=== PATIENT | male | born 1940 | race Caucasian/White ===

== ENCOUNTER → 2016-08-11 | Outpatient (CLI) | payer BC ==
[~2016-08-11] MED LIST: ALLO100T57 PO; ASCO500T16 PO; ASPI-435 PO; CEFE2INJ2 PO; CHOL100027 PO; FAMO20TA9 PO; FLV400 PO; LINA1TAB PO; LPR25 PO; MONT1TAB3 PO; OXYC-609 PO; POLY150C PO; PRS5 PO; PRVC20 PO; RAMI2.5C PO; SENN-63 PO; WARF5TAB90 PO
--- NOTE | 2016-08-11 07:45 | DIAGNOSTIC IMAGING REPORT ---
ULTRASOUND OF THE ABDOMINAL AORTA CLINICAL HISTORY: Generalized abdominal pain. Aneurysm screening. COMPARISON STUDY: No priors. TECHNIQUE: Multiple jacobo scale, color Doppler, and spectral Doppler sonograms of the abdominal aorta and iliac arteries are performed. Images are reviewed in the transverse and longitudinal planes. FINDINGS: There is mild to moderate atherosclerotic calcification and irregularity noted throughout the abdominal aorta. The proximal abdominal aorta measures 2.4 x 2.7 cm (AP times transverse), the mid abdominal aorta measures 2.0 x 2.3 cm, and the distal abdominal aorta measures 2.1 x 2.4 cm. The right common iliac artery measures up to 1.4 cm and the left common iliac artery measures up to 1.2 cm. The abdominal aorta and iliac arteries are patent. IMPRESSION: There is no sonographic evidence of abdominal aortic aneurysm. Electronically signed by: Carlos Phelps M.D. 08/11/2016 7:44 AM Dictated Date/Time: 08/11/2016 7:43 AM
--- NOTE | 2016-08-11 09:00 | DIAGNOSTIC IMAGING REPORT ---
L-SPINE FLEX/EXT BENDING MIN 6 CLINICAL HISTORY: LEFT HIP PAIN pain COMPARISON STUDY: None FINDINGS: Moderate degenerative disc changes throughout. Mild reactive osteophytic change. No evidence for compression deformity. No evidence for subluxation with flexion or extension. IMPRESSION: Mild/moderate degenerative intervertebral this change. Otherwise negative study with no evidence for subluxation Electronically signed by: Twin Cuello M.D. 08/11/2016 8:59 AM Dictated Date/Time: 08/11/2016 8:57 AM
--- NOTE | 2016-08-11 09:09 | DIAGNOSTIC IMAGING REPORT ---
SINGLE VIEW PELVIS; 2 VIEWS RIGHT HIP; 2 VIEWS LEFT HIP CLINICAL HISTORY: Chronic low back pain. Left hip pain. FINDINGS: An AP view of the pelvis with AP and frog-leg views of the right hip as well as AP and frog-leg views of the left hip are obtained. Correlation is made with pelvic CT dated 10/28/2007. The skeletal structures are osteopenic. No fracture is seen. There is mild to moderate arthritic change present in both hips, right greater than left. Bony overgrowth is seen along the acetabular roofs, and there is spurring from the right femoral head. Large enthesophytes arise in the anterior superior iliac spine bilaterally. Mild sclerotic change is seen in the sacroiliac joints and pubic symphysis. Mild lumbosacral spondylosis is partially imaged. Phlebolith are noted in the pelvis. Surgical clips are noted in the right groin. Advanced atherosclerotic calcification is present in the femoral arteries. A nonobstructed bowel gas pattern is noted. IMPRESSION: 1. No acute bony abnormality is seen in the hips or pelvis. 2. Osteopenia and arthritic change as above, right hip greater than left. Electronically signed by: Carlos Phelps M.D. 08/11/2016 9:07 AM Dictated Date/Time: 08/11/2016 8:57 AM
== END | disposition home or self-care (01) ==
LOC: C.ULTRBC 07:15
PROVIDERS: ATTEND Family Medicine
DX: M54.5 Low back pain (principal); R10.9 Unspecified abdominal pain; M85.88 Other specified disorders of bone density and structure, other site; Z82.49 Family history of ischemic heart disease and other diseases of the circulatory system

== ENCOUNTER → 2016-09-14 | Outpatient (CLI) | payer BC ==
[2016-09-14 16:29] LABS: BASO % 0.3 %; BASO ABS # 0.02 K/uL (0-0.2); COMPLETE YES; EOS % 2.1 %; HEMATOCRIT 40.3 % (42-52); IG% 0.5 %; LYMPH ABS # 1.82 K/uL (1.2-3.4); MEAN CELL VOLUME 95.7 fL (80-100); MEAN CORPUSCULAR HEMOGLOBIN 33.5 pg (25-34); MEAN PLATELET VOLUME 11.1 fL (7.4-10.4); NEUT % 65.1 %; PLATELET COUNT 181 K/uL (130-400); RED BLOOD COUNT 4.21 M/uL (4.7-6.1); WHITE BLOOD COUNT 7.59 K/uL (4.8-10.8)
[2016-09-14 17:02] LABS: ALT/SGPT 26 U/L (12-78); C-REACTIVE PROTEIN < 0.29 mg/dl (0-0.29); CREATININE 0.82 mg/dl (0.60-1.40)
[2016-09-14 17:05] LABS: ALKALINE PHOSPHATASE 59 U/L (45-117); AST/SGOT 17 U/L (15-37)
== END | disposition home or self-care (01) ==
LOC: C.LAB 14:20
PROVIDERS: ATTEND Nurse Practitioner Family
DX: Z77.9 Other contact with and (suspected) exposures hazardous to health (principal)

== ENCOUNTER → 2016-11-10 | Outpatient (CLI) | payer OTHER ==
[2016-11-10 11:42] LABS: HEMATOCRIT 43.6 % (42-52); MEAN CELL VOLUME 96.5 fL (80-100); MEAN CORPUSCULAR HEMOGLOBIN 33.4 pg (25-34); MEAN CORPUSCULAR HGB CONC 34.6 g/dl (32-36); MEAN PLATELET VOLUME 11.2 fL (7.4-10.4); PLATELET COUNT 175 K/uL (130-400); RED BLOOD COUNT 4.52 M/uL (4.7-6.1); WHITE BLOOD COUNT 7.74 K/uL (4.8-10.8)
[2016-11-10 12:11] LABS: ALB/GLOB RATIO 1.3 (0.9-2); ALKALINE PHOSPHATASE 58 U/L (45-117); ALT/SGPT 23 U/L (12-78); AST/SGOT 20 U/L (15-37); BLOOD UREA NITROGEN 22 mg/dl (7-18); BUN/CREATININE RATIO 21.5 (10-20); C-REACTIVE PROTEIN < 0.29 mg/dl (0-0.29); CALCIUM 9.5 mg/dl (8.5-10.1); CARBON DIOXIDE 25 mmol/L (21-32); CHLORIDE 110 mmol/L (98-107); GLUCOSE 136 mg/dl (70-99); POTASSIUM 4.4 mmol/L (3.5-5.1); SODIUM 142 mmol/L (136-145)
== END | disposition home or self-care (01) ==
LOC: C.LAB 11:00
PROVIDERS: ATTEND Internal Medicine Infectious Disease
DX: Z77.9 Other contact with and (suspected) exposures hazardous to health (principal)

== ENCOUNTER → 2016-11-25 | Outpatient (CLI) | payer BC ==
[2016-11-25 09:39] LABS: BASO % 0.4 %; BASO ABS # 0.03 K/uL (0-0.2); COMPLETE YES; EOS % 3.5 %; HEMATOCRIT 43.4 % (42-52); IG% 0.4 %; LYMPH % 25.5 %; LYMPH ABS # 1.92 K/uL (1.2-3.4); MEAN CELL VOLUME 95.8 fL (80-100); MEAN CORPUSCULAR HEMOGLOBIN 31.8 pg (25-34); MEAN CORPUSCULAR HGB CONC 33.2 g/dl (32-36); MEAN PLATELET VOLUME 11.2 fL (7.4-10.4); MONO % 7.4 %; NEUT % 62.8 %; PLATELET COUNT 169 K/uL (130-400); RED BLOOD COUNT 4.53 M/uL (4.7-6.1); WHITE BLOOD COUNT 7.52 K/uL (4.8-10.8)
[2016-11-25 09:55] LABS: ALT/SGPT 25 U/L (12-78); BLOOD UREA NITROGEN 18 mg/dl (7-18); BUN/CREATININE RATIO 18.6 (10-20); CARBON DIOXIDE 25 mmol/L (21-32); CHLORIDE 108 mmol/L (98-107); CHOLESTEROL 154 mg/dl (0-200); CREATININE 0.99 mg/dl (0.60-1.40); GLUCOSE 143 mg/dl (70-99); POTASSIUM 4.2 mmol/L (3.5-5.1); SODIUM 143 mmol/L (136-145); TRIGLYCERIDES 181 mg/dl (0-150); URIC ACID 3.9 mg/dl (2.6-7.2); VERY LOW DENSITY LIPOPROT CALC 36 mg/dl
[2016-11-25 09:58] LABS: CALCIUM 8.9 mg/dl (8.5-10.1)
[2016-11-25 10:04] LABS: ALB/GLOB RATIO 1.4 (0.9-2); ALKALINE PHOSPHATASE 58 U/L (45-117); AST/SGOT 16 U/L (15-37); CHOLESTEROL/HDL RATIO 4.1; HDL CHOLESTEROL 38 mg/dl; LDL CHOLESTEROL CALCULATED 80 mg/dl; PHOSPHORUS 2.8 mg/dl (2.5-4.9)
[2016-11-25 10:33] LABS: ESTIMATED AVERAGE GLUCOSE 143 mg/dl; HA1C FLAG Normal (Normal)
[2016-11-26 10:18] LABS: C-REACTIVE PROT HIGHSEN 1.5 MG/L
--- NOTE | 2016-11-30 09:48 | CODING QUERY MEDICAL NECESSITY ---
SUPPORTING DIAGNOSIS NEEDED Dr. Garcia, A supporting diagnosis is required for the test/procedure performed on this patient in order for us to be reimbursed by the patient's insurance. Please provide a supporting diagnosis for the following test/procedure listed below next to the test name along with your signature. *If there is no additional diagnosis for this patient that would support the following test/procedure please document that below next to the test/procedure. Test(s)/Procedure(s) that require a supporting diagnosis: * ([id number]) VITAMIN D ASSAY DIAGNOSIS: * ([id number]) B12 VITAMIN LEVEL DIAGNOSIS: * ([id number]) C-REATIVE PROTEIN DIAGNOSIS: DATE OF SERVICE: 11/25/16 Provider Signature: Date: Thank you Schuyler [facility] Information Management Once completed, please kindly fax back to [phone] For questions please call [phone]
== END | disposition home or self-care (01) ==
LOC: C.LAB 07:53
PROVIDERS: ATTEND Family Medicine
DX: R73.09 Other abnormal glucose (principal); R53.83 Other fatigue

== ENCOUNTER → 2017-01-25 | Outpatient (CLI) | payer BC | END | disposition home or self-care (01) | LOC: C.LAB 17:46 | PROVIDERS: ATTEND Family Medicine | DX: J02.9 Acute pharyngitis, unspecified (principal) ==

== ENCOUNTER → 2017-04-12 | Outpatient (CLI) | payer OTHER, BC ==
[2017-04-12 16:30] LABS: BASO % 0.4 %; BASO ABS # 0.03 K/uL (0-0.2); COMPLETE YES; EOS % 2.9 %; HEMATOCRIT 41.3 % (42-52); IG% 0.1 %; LYMPH % 22.8 %; LYMPH ABS # 1.83 K/uL (1.2-3.4); MEAN CELL VOLUME 95.2 fL (80-100); MEAN CORPUSCULAR HEMOGLOBIN 33.2 pg (25-34); MEAN CORPUSCULAR HGB CONC 34.9 g/dl (32-36); MEAN PLATELET VOLUME 11.2 fL (7.4-10.4); MONO % 6.2 %; NEUT % 67.6 %; PLATELET COUNT 174 K/uL (130-400); RED BLOOD COUNT 4.34 M/uL (4.7-6.1); WHITE BLOOD COUNT 8.04 K/uL (4.8-10.8)
[2017-04-12 16:58] LABS: ALT/SGPT 24 U/L (12-78); BLOOD UREA NITROGEN 21 mg/dl (7-18); BUN/CREATININE RATIO 21.2 (10-20); C-REACTIVE PROTEIN < 0.29 mg/dl (0-0.29); CALCIUM 9.6 mg/dl (8.5-10.1); CARBON DIOXIDE 25 mmol/L (21-32); CHLORIDE 107 mmol/L (98-107); CREATININE 0.98 mg/dl (0.60-1.40); GLUCOSE 172 mg/dl (70-99); POTASSIUM 3.9 mmol/L (3.5-5.1); SODIUM 140 mmol/L (136-145)
[2017-04-12 17:00] LABS: ALB/GLOB RATIO 1.4 (0.9-2); ALKALINE PHOSPHATASE 61 U/L (45-117); AST/SGOT 18 U/L (15-37)
== END | disposition home or self-care (01) ==
LOC: C.LAB 14:33
PROVIDERS: ATTEND Internal Medicine Infectious Disease
DX: Z77.9 Other contact with and (suspected) exposures hazardous to health (principal); N40.1 Benign prostatic hyperplasia with lower urinary tract symptoms; R97.20 Elevated prostate specific antigen [PSA]

== ENCOUNTER → 2017-06-23 | Outpatient (CLI) | payer BC ==
[2017-06-23 09:30] LABS: BASO % 0.5 %; BASO ABS # 0.03 K/uL (0-0.2); EOS % 3.3 %; EOS ABS # 0.21 K/uL (0-0.5); HEMATOCRIT 41.8 % (42-52); HEMOGLOBIN 14.7 g/dL (14.0-18.0); IG# 0.03 K/uL (0.00-0.02); LYMPH % 28.4 %; LYMPH ABS # 1.83 K/uL (1.2-3.4); MEAN CELL VOLUME 95.7 fL (80-100); MEAN CORPUSCULAR HEMOGLOBIN 33.6 pg (25-34); MEAN CORPUSCULAR HGB CONC 35.2 g/dl (32-36); MEAN PLATELET VOLUME 10.9 fL (7.4-10.4); MONO % 9.8 %; MONO ABS # 0.63 K/uL (0.11-0.59); NEUT % 57.5 %; NEUT ABS # 3.71 K/uL (1.4-6.5); PLATELET COUNT 166 K/uL (130-400); RED CELL DISTRIBUTION WIDTH CV 13.7 % (11.5-14.5); RED CELL DISTRIBUTION WIDTH SD 47.9 fL (36.4-46.3); WHITE BLOOD COUNT 6.44 K/uL (4.8-10.8)
[2017-06-23 09:55] LABS: HEMOGLOBIN A1C 6.6 % (4.5-5.6)
[2017-06-23 09:58] LABS: ALBUMIN 4.2 gm/dl (3.4-5.0); ALT/SGPT 26 U/L (12-78); AST/SGOT 16 U/L (15-37); BLOOD UREA NITROGEN 18 mg/dl (7-18); CARBON DIOXIDE 28 mmol/L (21-32); CHOLESTEROL 178 mg/dl (0-200); CREATININE 0.95 mg/dl (0.60-1.40); GLUCOSE 139 mg/dl (70-99); POTASSIUM 4.3 mmol/L (3.5-5.1); SODIUM 139 mmol/L (136-145); URIC ACID 4.6 mg/dl (2.6-7.2)
[2017-06-23 10:08] LABS: ALKALINE PHOSPHATASE 57 U/L (45-117); LDL CHOLESTEROL CALCULATED 77 mg/dl; TRANSFERRIN 288 mg/dl (200-360)
== END | disposition home or self-care (01) ==
LOC: C.LAB 08:48
PROVIDERS: ATTEND Family Medicine
DX: R73.09 Other abnormal glucose (principal); E55.9 Vitamin D deficiency, unspecified; D51.9 Vitamin B12 deficiency anemia, unspecified; E78.9 Disorder of lipoprotein metabolism, unspecified; R53.83 Other fatigue; N40.0 Benign prostatic hyperplasia without lower urinary tract symptoms

== ENCOUNTER → 2017-08-13 | Outpatient (CLI) | payer BC ==
[2017-08-13 13:13] LABS: BASO % 0.1 %; BASO ABS # 0.01 K/uL (0-0.2); EOS ABS # 0.14 K/uL (0-0.5); HEMATOCRIT 42.6 % (42-52); HEMOGLOBIN 14.4 g/dL (14.0-18.0); IG# 0.03 K/uL (0.00-0.02); LYMPH % 20.3 %; LYMPH ABS # 1.41 K/uL (1.2-3.4); MEAN CELL VOLUME 95.1 fL (80-100); MEAN CORPUSCULAR HEMOGLOBIN 32.1 pg (25-34); MEAN CORPUSCULAR HGB CONC 33.8 g/dl (32-36); MEAN PLATELET VOLUME 10.8 fL (7.4-10.4); MONO % 8.9 %; MONO ABS # 0.62 K/uL (0.11-0.59); NEUT % 68.3 %; NEUT ABS # 4.74 K/uL (1.4-6.5); PLATELET COUNT 181 K/uL (130-400); RED CELL DISTRIBUTION WIDTH CV 14.7 % (11.5-14.5); RED CELL DISTRIBUTION WIDTH SD 50.9 fL (36.4-46.3); WHITE BLOOD COUNT 6.95 K/uL (4.8-10.8)
[2017-08-13 13:51] LABS: ALBUMIN 4.2 gm/dl (3.4-5.0); ALT/SGPT 24 U/L (12-78); AST/SGOT 17 U/L (15-37); BLOOD UREA NITROGEN 20 mg/dl (7-18); CALCIUM 9.1 mg/dl (8.5-10.1); CARBON DIOXIDE 26 mmol/L (21-32); CREATININE 1.05 mg/dl (0.60-1.40); GLUCOSE 131 mg/dl (70-99); SODIUM 140 mmol/L (136-145)
[2017-08-13 13:53] LABS: ALKALINE PHOSPHATASE 61 U/L (45-117); TOTAL PROTEIN 7.2 gm/dl (6.4-8.2)
== END | disposition home or self-care (01) ==
LOC: C.LAB 11:11
PROVIDERS: ATTEND Internal Medicine Infectious Disease
DX: Z77.9 Other contact with and (suspected) exposures hazardous to health (principal)

== ENCOUNTER → 2018-01-17 | Outpatient (CLI) | payer BC | END | disposition home or self-care (01) | LOC: C.LAB 11:11 | PROVIDERS: ATTEND Urology | DX: R97.20 Elevated prostate specific antigen [PSA] (principal) ==

== ENCOUNTER 2020-12-06 22:38 | Inpatient (IN) ==
--- NOTE | 2020-12-07 00:12 | Emergency Department Note ---
History of Present Illness General Chief complaint: Weakness Time Seen by Provider: 12/06/20 23:36 Source: patient and family Mode of arrival: EMS Limitations: no limitations History of Present Illness Provider complaint: Weak, dizzy, frequent falls Onset (ago): week(s) 3 Is a 80-year-old male presents emergency department via EMS with at bedside due to concern for increasing dizziness, weakness, and frequent falls. On October 24 patient underwent a valve surgery done at [facility] and according to the had an episode of cardiac arrest intraoperatively. Patient states he spent 11 days in the ICU prior to being discharged. She states prior to discharge she did have a PT evaluation and with his walker they felt him steady and able to be discharged home. She states he had been started on Keppra as he had some seizure-like activity due to the cardiac arrest. He d id come home on that and they followed up with neurology, Dr. Lovelace. They began weaning back the Keppra as he was doing well and they felt his seizures were related to brief hypoxia during the cardiac arrest. Patient stopped the Keppra 2 weeks ago. They have followed up locally with cardiology, Dr. Elder, and they feel he is doing well status post valve replacement surgery. She states they discussed the dizziness and weakness with him and he told him to stop taking the ramipril he was using. She states he has now been off that for 1 week. She states over these last 2 to 3 weeks he has sustained a total of 4 falls. She states he typically falls to the right, and luckily he has not had any head injuries or significant injury. They did follow-up with his PCP Dr. Garcia as a result of this. states he had a subsequent recurrent episode again last night and was weaker and unsteady looking today even with the use of his walker and she is concerned for worsening symptoms and possible risk of recurrent fall. She states he is not had any fevers or chills. Patient did initially have a urinary catheter which was subsequently removed by urology and she states he is urinating well. She states he has not had any alcohol since the surgery. Patient describes it as feeling as though when he is standing his legs become very weak and wobbly and start to give out from underneath him. He denies chest pain/pressure, shortness of breath, abdominal pain, difficulty with bowel or bladder function, dizziness, headaches, vision changes, or tinnitus. Denies any accompanying paresthesias, neck or back pain. They did yesterday recontact neurology and there was discussion of possible neuroimaging as an outpatient next week. Pt seen during a time of high acuity and national emergency pandemic while wearing PPE. Home Medications Medication Instructions Recorded Confirmed Type allopurinol 300 mg tablet 300 mg PO QAM tab 02/09/19 12/06/20 History ascorbic acid (vitamin C) 500 mg 500 mg PO 3XWK tab 02/09/19 12/06/20 History tablet fenofibrate nanocrystallized 145 145 mg PO QAM tab 02/09/19 12/06/20 History mg tablet pravastatin 20 mg tablet 20 mg PO PM tab 02/09/19 12/06/20 History psyllium husk 3.4 gram/5.4 gram 0.5 tbsp PO QAM gm 02/09/19 12/06/20 History oral powder Centrum Silver Men 1 tab PO 4XWK 01/10/20 12/06/20 History coenzyme Q10 [Co Q-10] 200 mg PO QAM 01/10/20 12/06/20 History metformin 850 mg PO QAM 01/10/20 12/06/20 History metoprolol succinate 75 mg PO QPM 08/09/20 12/06/20 History cholecalciferol (vitamin D3) 50 25 mcg PO 3XWK tab 11/14/20 12/06/20 History mcg (2,000 unit) tablet vitamin B complex 1 tab PO 3XWK tab 11/21/20 12/06/20 History aspirin 81 mg PO QPM 12/06/20 12/06/20 History clopidogrel [Plavix] 75 mg PO QAM 12/06/20 12/06/20 History cyanocobalamin (vitamin B-12) 1,000 mcg SUBLINGUAL 4XWK 12/06/20 12/06/20 History [Vitamin B-12] finasteride 5 mg PO QPM 12/06/20 12/06/20 History levetiracetam 500 mg PO BID 12/06/20 12/06/20 History ramipril 10 mg PO QAM 12/06/20 12/06/20 History tamsulosin 0.4 mg PO QAM 12/06/20 12/06/20 History thiamine HCl (vitamin B1) 100 mg PO 4XWK 12/06/20 12/06/20 History Allergies Allergy/AdvReac Type Severity Reaction Status Date / Time mold Allergy Intermediate SNEEZING, Verified 12/06/20 23:23 CONGESTION Past Med/Surg History Medical History Aortic valve disorder SEES DR. ELDER. S/P AV replacement X 2. 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 S/p antibiotic treatment and 2nd AV replacement. Current prosthesis does have a moderate degree of stenosis, but patient is asymptomatic and cardiology monitoring with routine echos until patient develops symptoms. Environmental allergies Esophageal reflux Controlled/resolved with diet changes. Essential hypertension Extrinsic asthma NEVER HAS USED INHALER Hiatal hernia Hx of gout Hypercholesterolemia Osteoarthritis Type 2 diabetes mellitus NIDDM Surgical History Heart valve replaced by other means X2> LAST ONE 5 YRS AGO> [facility] > [facility] > FOLLOWS DR. ELDER History of appendectomy History of cardiac cath 16 YRS AGO [facility] History of colonoscopy History of hemorrhoidectomy History of tonsillectomy History of tooth extraction History of total knee replacement BILAT History of urologic surgery HX CYSOLITHOPAXY FOR BLADDER STONE Hx of inguinal hernia repair S/P PICC central line placement HX > HAD FOR ENDOCARDITIS Family History Mother Diabetes Uncle Colon cancer Sister Family history of diabetes mellitus Other No family history of adverse response to anesthesia Social History Smoking Status: Former smoker Second Hand Exposure: Yes ( A CHILD); Hx Alcohol Use: Yes Alcohol type: wine and hard liquor Preferred Language: Chilean Communication Ability: Effective Visual Impairment: No Limitations Elementary Educator Required: No Beliefs That Will Affect Care: None Current Living Situation: Spouse Feels Safe at Home: Yes Assistive Devices: Glasses Review of Systems See HPI for pertinent positives & negatives. and A total of 10 systems reviewed and were otherwise negative Physical Exam Vital Signs Vital Signs - 24 hr 12/06/20 22:38 12/06/20 22:43 12/06/20 23:05 Temperature 36.9 C Temperature Source Oral Pulse Rate 70 69 69 Pulse Rate from SpO2 Sensor 68 Respiratory Rate 14 22 19 Blood Pressure 143/79 H 143/79 H Blood Pressure Mean 100 100 Pulse Oximetry 99 98 Oxygen Delivery Method Room Air Sepsis Recent Fever Within 48 Hours No Sepsis New/Unexplained Change in Mental Status No Sepsis Action Taken by Nursing No Action Required 12/06/20 23:30 12/06/20 23:58 Temperature Temperature Source Pulse Rate 66 Pulse Rate from SpO2 Sensor 66 Respiratory Rate 22 Blood Pressure Blood Pressure Mean Pulse Oximetry 96 Oxygen Delivery Method Room Air Sepsis Recent Fever Within 48 Hours Sepsis New/Unexplained Change in Mental Status Sepsis Action Taken by Nursing GENERAL: alert, well appearing, well nourished, no distress, non-toxic EYE EXAM: normal conjunctiva, PERRL and EOM's grossly intact OROPHARYNX: no exudate, no erythema, lips, buccal mucosa, and tongue normal and mucous membranes are moist NECK: supple, no nuchal rigidity, no adenopathy, non-tender LUNGS: Clear to auscultation. Normal chest wall mechanics, no w/r/r HEART: no murmurs, S1 normal and S2 normal, well healed midline sternotomy scar ABDOMEN: abdomen soft, non-tender, normo-active bowel sounds, no masses, no rebound or guarding. BACK: Back is symmetrical on inspection and there is no deformity, no midline tenderness, no CVA tenderness. SKIN: no rashes and no bruising UPPER EXTREMITIES: upper extremities are grossly normal. FROM, nml pulses b/l. LOWER EXTREMITIES: No pitting edema. FROM, nml pulses b/l. Str 5/5 hip flex, plantar/dorsiflexion, well healed vertical incisions over both knees consistent with surgery NEURO EXAM: Normal sensorium, cranial nerves II-XII grossly intact, normal speech, no gross weakness of arms, no gross weakness of legs. Gross sensation intact. Course Administered Medications Allopurinol (Allopurinol 300 Mg Tab) 300 mg PO QAM [facility] Stop: 01/06/21 08:59 Last Admin: 12/07/20 09:14 Dose: 300 mg Documented by: [id number] Aspirin (Aspirin 81 Mg Ectab) 81 mg PO QPM [facility] Stop: 01/06/21 20:59 Last Admin: 12/07/20 21:07 Dose: 81 mg Documented by: [id number] Clopidogrel Bisulfate (Clopidogrel Bisulfate 75 Mg Tab) 75 mg PO QAM [facility] Stop: 01/06/21 08:59 Last Admin: 12/07/20 09:14 Dose: 75 mg Documented by: [id number] Cyanocobalamin (Cyanocobalamin 500 Mcg Tablet (Vitamin B-12)) 1,000 mcg PO SuTuThSa@0900 [facility] Stop: 01/06/21 08:59 Last Admin: 12/07/20 09:14 Dose: 1,000 mcg Documented by: [id number] Fenofibrate (Fenofibrate Nanocrystallized 145 Mg Tablet) 145 mg PO QAM [facility] Stop: 01/06/21 08:59 Last Admin: 12/07/20 09:14 Dose: 145 mg Documented by: [id number] Finasteride (Finasteride 5 Mg Tab) 5 mg PO QPM [facility] Stop: 01/06/21 20:59 Last Admin: 12/07/20 21:07 Dose: 5 mg Documented by: [id number] Ceftriaxone Sodium 2,000 mg/ (Dextrose) 70 mls @ 100 mls/hr IV Q24H [facility]; Protocol Stop: 12/17/20 18:44 Last Infusion: 12/07/20 20:54 Dose: 0 mls/hr Documented by: [id number] Admin: 12/07/20 19:45 Dose: 100 mls/hr Documented by: [id number] Insulin Aspart (Insulin Aspart 100 Units/Ml 3 Ml Pen) 0 units SC ACHS [facility] Stop: 01/06/21 07:29 Last Admin: 12/07/20 21:29 Dose: Not Given Documented by: [id number] Cosigned by: [id number] Admin: 12/07/20 17:27 Dose: 2 units Documented by: [id number] Cosigned by: [id number] Admin: 12/07/20 12:37 Dose: 2 units Documented by: [id number] Cosigned by: [id number] Admin: 12/07/20 09:06 Dose: 2 units Documented by: [id number] Cosigned by: [id number] Levetiracetam (Levetiracetam 500 Mg Tab) 500 mg PO BID [facility] Stop: 01/06/21 09:44 Last Admin: 12/07/20 21:07 Dose: 500 mg Documented by: [id number] Admin: 12/07/20 12:36 Dose: 500 mg Documented by: [id number] Metoprolol Succinate (Metoprolol Succ 25mg Ext Rel Tab) 75 mg PO QPM [facility] Stop: 01/06/21 20:59 Last Admin: 12/07/20 21:06 Dose: 75 mg Documented by: [id number] Multivitamins/Minerals (Cerovite Adv Formula Tab) 1 tab PO SuTuThSa@0900 [facility] Stop: 01/06/21 08:59 Last Admin: 12/07/20 09:15 Dose: 1 tab Documented by: [id number] Pravastatin Sodium (Pravastatin Sod 20 Mg Tab) 20 mg PO PM [facility] Stop: 01/06/21 20:59 Last Admin: 12/07/20 21:10 Dose: 20 mg Documented by: [id number] Psyllium Hydrophilic Mucilloid (Psyllium 58.6% Powder Packet) 1 pkt PO QAM [facility] Stop: 01/06/21 08:59 Last Admin: 12/07/20 09:14 Dose: 1 pkt Documented by: [id number] Tamsulosin HCl (Tamsulosin Hcl 0.4 Mg Cap) 0.4 mg PO HS [facility] Stop: 01/06/21 20:59 Last Admin: 12/07/20 21:07 Dose: 0.4 mg Documented by: [id number] Thiamine HCl (Thiamine Hcl 100 Mg Tab) 100 mg PO SuTuThSa@0900 [facility] Stop: 01/06/21 08:59 Last Admin: 12/07/20 09:15 Dose: 100 mg Documented by: [id number] Discontinued Medications Sodium Chloride (Nss 1000ml) 1,000 mls @ 125 mls/hr IV .Q8H [facility] Stop: 01/06/21 00:14 Last Admin: 12/07/20 16:49 Dose: Not Given Documented by: [id number] Infusion: 12/07/20 16:49 Dose: 0 mls/hr Documented by: [id number] Admin: 12/07/20 09:22 Dose: 125 mls/hr Documented by: [id number] Infusion: 12/07/20 09:05 Dose: 0 mls/hr Documented by: [id number] Admin: 12/07/20 00:38 Dose: 125 mls/hr Documented by: [id number] Medical Decision Making Differential Diagnosis Differential Diagnosis includes but is not limited to dehydration, stroke, anemia, hypoglycemia, hyponatremia, hypernatremia, urinary tract infection, pneumonia, bronchitis, sepsis, gastroenteritis, additional abdominal pathology, metabolic abnormalities and infections. Medical Records Attestation: I reviewed the patient's medical records. Home Medications Current Medication List: was personally reviewed by me Laboratory Data Attestation: I reviewed the patient's lab results. Result diagrams: 12/06/20 23:00 12/06/20 23:00 Lab Results 12/06/20 12/06/20 12/07/20 Range/Units 23:00 23:00 01:30 WBC 7.91 (4.8-10.8) K/uL RBC 3.47 L (4.7-6.1) M/uL Hgb 10.7 L (14.0-18.0) g/dL Hct 32.9 L (42-52) % MCV 94.8 (80-100) fL MCH 30.8 (25-34) pg MCHC 32.5 (32-36) g/dL RDW Std Deviation 51.5 H (36.4-46.3) fL RDW Coeff of Miranda 15.0 H (11.5-14.5) % Plt Count 307 (130-400) K/uL MPV 10.2 (7.4-10.4) fL Immature Gran % (Auto) 0.3 % Neut % (Auto) 77.5 % Lymph % (Auto) 13.7 % [place] % (Auto) 6.4 % Eos % (Auto) 1.8 % Baso % (Auto) 0.3 % Neut # (Auto) 6.14 (1.4-6.5) K/uL Lymph # (Auto) 1.08 L (1.2-3.4) K/uL [place] # (Auto) 0.51 (0.11-0.59) K/uL Eos # (Auto) 0.14 (0-0.5) K/uL Baso # (Auto) 0.02 (0-0.2) K/uL Immature Gran # (Auto) 0.02 (0.00-0.02) K/uL Sodium 140 (136-145) mmol/L Potassium 3.8 (3.5-5.1) mmol/L Chloride 109 H (98-107) mmol/L Carbon Dioxide 24 (21-32) mmol/L Anion Gap 6.0 (3-11) BUN 26 H (7-18) mg/dl Creatinine 0.87 (0.6-1.4) mg/dl Est Cr Clr Drug Dosing 75.6 ml/min Est GFR ( Amer) 95.1 ml/min Est GFR (Non-Af Amer) 82.1 ml/min BUN/Creatinine Ratio 29.7 H (10-20) Glucose 167 H (70-99) mg/dl Calcium 9.2 (8.5-10.1) mg/dl Magnesium 1.9 (1.8-2.4) mg/dl Total Bilirubin 0.4 (0.2-1) mg/dl AST 12 L (15-37) U/L ALT 12 (12-78) U/L Alkaline Phosphatase 66 (45-117) U/L Troponin I < 0.015 (0-0.045) ng/ml Total Protein 7.2 (6.4-8.2) gm/dl Albumin 3.6 (3.4-5.0) gm/dl Globulin 3.6 (2.5-4.0) gm/dl Albumin/Globulin Ratio 1.0 (0.9-2) TSH 1.220 (0.300-4.500) uIu/ml COVID-19 Eval Order Covid19 at [facility] SARS-CoV-2 (PCR) (Negative) 12/07/20 Range/Units 01:30 WBC (4.8-10.8) K/uL RBC (4.7-6.1) M/uL Hgb (14.0-18.0) g/dL Hct (42-52) % MCV (80-100) fL MCH (25-34) pg MCHC (32-36) g/dL RDW Std Deviation (36.4-46.3) fL RDW Coeff of Miranda (11.5-14.5) % Plt Count (130-400) K/uL MPV (7.4-10.4) fL Immature Gran % (Auto) % Neut % (Auto) % Lymph % (Auto) % [place] % (Auto) % Eos % (Auto) % Baso % (Auto) % Neut # (Auto) (1.4-6.5) K/uL Lymph # (Auto) (1.2-3.4) K/uL [place] # (Auto) (0.11-0.59) K/uL Eos # (Auto) (0-0.5) K/uL Baso # (Auto) (0-0.2) K/uL Immature Gran # (Auto) (0.00-0.02) K/uL Sodium (136-145) mmol/L Potassium (3.5-5.1) mmol/L Chloride (98-107) mmol/L Carbon Dioxide (21-32) mmol/L Anion Gap (3-11) BUN (7-18) mg/dl Creatinine (0.6-1.4) mg/dl Est Cr Clr Drug Dosing ml/min Est GFR ( Amer) ml/min Est GFR (Non-Af Amer) ml/min BUN/Creatinine Ratio (10-20) Glucose (70-99) mg/dl Calcium (8.5-10.1) mg/dl Magnesium (1.8-2.4) mg/dl Total Bilirubin (0.2-1) mg/dl AST (15-37) U/L ALT (12-78) U/L Alkaline Phosphatase (45-117) U/L Troponin I (0-0.045) ng/ml Total Protein (6.4-8.2) gm/dl Albumin (3.4-5.0) gm/dl Globulin (2.5-4.0) gm/dl Albumin/Globulin Ratio (0.9-2) TSH (0.300-4.500) uIu/ml COVID-19 Eval Order SARS-CoV-2 (PCR) NEGATIVE (Negative) Imaging Data My Impression: X-ray: I interpreted the following studies. Chest: A single view study of the chest was reviewed and was negative for cardiomegaly, focal infiltrate, effusion, pulmonary edema, or wide mediastinum. Right shoulder: no obvious fx/dislocation Right hip: no fracture/dislocation ECG Data Attestation: I personally reviewed and interpreted this ECG as follows: Indication: + weakness Rate (beats per minute): 70 ECG Intervals/blocks: + First degree AV block, + Normal QRS and + Normal QT ECG [place]: + Normal ECG ST segments: + ST depression (V5-6) and + T-wave inversions (I, aVL) MDM Narrative This is a 80-year-old male presents with his due to concern for persistent weakness and recurrent falls. Patient did feel that he was getting better following difficult course from an aortic valve replacement and prolonged hospi talization. Over the last 3 weeks however patient has had increased weakness and dizziness even after cessation of several medications. does feel there may be a component of dehydration, however at this time given recurrent falls feels he is unsafe as even with a walker he is having falls. Labs and x-ray imaging were reassuring. Patient has seen neurology regarding these issues. No evidence of trauma from falls. Patient was afebrile and hemodynamically stable here. Case discussed with hospitalist for additional inpatient evaluation and management. UA still pending at that time. Patient was cautiously started on IV fluid rehydration. No other symptoms to suggest cardiac etiology despite recent surgical procedure. Patient with no focal neuro deficits to suggest acute CVA or ICH. An order was placed for continuous cardiac monitoring. The monitor shows a rate of _60_ with _normal sinus_ rhythm. Impression & Plan Generalized weakness, Recurrent falls, Dizziness Discharge Plan Visit Data Chief Complaint: Weakness ED Provider: Adrianne Diaz Discharge Problem: Generalized weakness, Recurrent falls, Dizziness Patient Disposition: Admitted As Inpatient Discharge Instructions Interventions: ED Discharge Assessment Last Done: 12/07/20 03:55
[2020-12-07 00:21] LABS: Basophils # (auto) 0.02 K/uL (0-0.2); Basophils % (auto) 0.3 %; Eosinophils # (auto) 0.14 K/uL (0-0.5); Eosinophils % (auto) 1.8 %; Hematocrit (blood only) 32.9 % (42-52); Hemoglobin 10.7 g/dL (14.0-18.0); Immature Granulocytes # (auto) 0.02 K/uL (0.00-0.02); Immature Granulocytes % (auto) 0.3 %; Lymphocytes # (auto) 1.08 K/uL (1.2-3.4); Lymphocytes % (auto) 13.7 %; Mean Corpuscular Hemoglobin 30.8 pg (25-34); Mean Corpuscular Hgb Conc 32.5 g/dL (32-36); Mean Corpuscular Volume 94.8 fL (80-100); Mean Platelet Volume 10.2 fL (7.4-10.4); Monocytes # (auto) 0.51 K/uL (0.11-0.59); Monocytes % (auto) 6.4 %; Neutrophils # (auto) 6.14 K/uL (1.4-6.5); Neutrophils % (auto) 77.5 %; Platelet Count 307 K/uL (130-400); RDW Standard Deviation 51.5 fL (36.4-46.3); Red Blood Count 3.47 M/uL (4.7-6.1); White Blood Count 7.91 K/uL (4.8-10.8)
[2020-12-07 00:28] LABS: Alanine Aminotransferase 12 U/L (12-78); Albumin Level 3.6 gm/dl (3.4-5.0); Aspartate Aminotransferase 12 U/L (15-37); BUN Creatinine Ratio 29.7 (10-20); Blood Urea Nitrogen 26 mg/dl (7-18); Calcium 9.2 mg/dl (8.5-10.1); Carbon Dioxide 24 mmol/L (21-32); Chloride 109 mmol/L (98-107); Creatinine Clr Calc Pharmacy 75.6 ml/min; Est GFR (African American) 95.1 ml/min; Est GFR (Non-African American) 82.1 ml/min; Glucose 167 mg/dl (70-99); Magnesium 1.9 mg/dl (1.8-2.4); Potassium 3.8 mmol/L (3.5-5.1); Sodium 140 mmol/L (136-145)
[2020-12-07 00:38] LABS: Alkaline Phosphatase 66 U/L (45-117); Bilirubin,Total 0.4 mg/dl (0.2-1); Globulin 3.6 gm/dl (2.5-4.0); Total Protein 7.2 gm/dl (6.4-8.2); Troponin I < 0.015 ng/ml (0-0.045)
[2020-12-07] MEDS: SODIUM CHLORIDE 0.9% 1000ML 1,000 ML IV SCH ×3 (00:38→16:49)
--- NOTE | 2020-12-07 03:05 | History & Physical Report ---
Date of Service December 07, 2020 Assessment & Plan (1) Ataxia: Ataxia/frequent falls- Patient reports that his bilateral lower extremities suddenly become weak when he goes from sitting to standing or when he turns to walk. He reportedly has had medications recently stopped: Keppra, and ramipril. Would recommend moving tamsulosin from morning to evening, in the event that orthostatic hypotension from this medication is contributing to symptoms. We will consult neurology. 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 Placed in Accu-Cheks before meals and at bedtime with NovoLog coverage per scale Check hemoglobin A1c Present on Admission?: Yes (5) Hypercholesterolemia: Continue pravastatin 20 mg daily Check a fasting lipid panel Present on Admission?: Yes (6) Essential hypertension: Hypertension/valve replacement history- Continue aspirin, clopidogrel. Present on Admission?: Yes (7) Enlarged prostate with lower urinary tract symptoms (LUTS): Continue finasteride Move tamsulosin from morning to evening as noted above. May need a trial off the tamsulosin altogether to see if affecting falls Present on Admission?: Yes History of Present Illness Chief Complaint: The patient presents to the emergency department with at bedside, due to concerns regarding increased frequency of falls, dizziness and generalized weakness. Primary Care Provider: Jace Garcia MD The patient is a 80-year-old male with a past medical history including seizure, acute encephalopathy, pneumonia, sepsis, aortic valve endocarditis, diabetes mellitus, BPH with LUTS, hypertension, hypercholesterolemia, extrinsic asthma, essential hypertension, GERD, CHF, atypical mycobacterial infection and multiple allergies. The patient underwent heart valve surgery on October 24 at [facility], and reportedly had intraoperative cardiac arrest, which is followed by 11 days in the ICU, and during which time the patient sustained hypoxic brain injury. Allergies Allergy/AdvReac Type Severity Reaction Status Date / Time mold Allergy Intermediate SNEEZING, Verified 12/06/20 23:23 CONGESTION Home Medications Medication Instructions Recorded Confirmed Type allopurinol 300 mg tablet 300 mg PO QAM tab 02/09/19 12/06/20 History ascorbic acid (vitamin C) 500 mg 500 mg PO 3XWK tab 02/09/19 12/06/20 History tablet fenofibrate nanocrystallized 145 145 mg PO QAM tab 02/09/19 12/06/20 History mg tablet pravastatin 20 mg tablet 20 mg PO PM tab 02/09/19 12/06/20 History psyllium husk 3.4 gram/5.4 gram 0.5 tbsp PO QAM gm 02/09/19 12/06/20 History oral powder Centrum Silver Men 1 tab PO 4XWK 01/10/20 12/06/20 History coenzyme Q10 [Co Q-10] 200 mg PO QAM 01/10/20 12/06/20 History metformin 850 mg PO QAM 01/10/20 12/06/20 History metoprolol succinate 75 mg PO QPM 08/09/20 12/06/20 History cholecalciferol (vitamin D3) 50 25 mcg PO 3XWK tab 11/14/20 12/06/20 History mcg (2,000 unit) tablet vitamin B complex 1 tab PO 3XWK tab 11/21/20 12/06/20 History aspirin 81 mg PO QPM 12/06/20 12/06/20 History clopidogrel [Plavix] 75 mg PO QAM 12/06/20 12/06/20 History cyanocobalamin (vitamin B-12) 1,000 mcg SUBLINGUAL 4XWK 12/06/20 12/06/20 History [Vitamin B-12] finasteride 5 mg PO QPM 12/06/20 12/06/20 History levetiracetam 500 mg PO BID 12/06/20 12/06/20 History ramipril 10 mg PO QAM 12/06/20 12/06/20 History tamsulosin 0.4 mg PO QAM 12/06/20 12/06/20 History thiamine HCl (vitamin B1) 100 mg PO 4XWK 12/06/20 12/06/20 History Past Med/Surg History Medical History Aortic valve disorder Atypical mycobacterial infection BPH (benign prostatic hyperplasia) Cardiac arrest Congestive heart failure Elevated prostate specific antigen (PSA) Endocarditis Environmental allergies Esophageal reflux Essential hypertension Extrinsic asthma Hiatal hernia Hx of gout Hypercholesterolemia Osteoarthritis Type 2 diabetes mellitus Surgical History Heart valve replaced by other means History of appendectomy History of cardiac cath History of colonoscopy History of hemorrhoidectomy History of tonsillectomy History of tooth extraction History of total knee replacement History of urologic surgery Hx of inguinal hernia repair S/P PICC central line placement Family History Mother Diabetes Uncle Colon cancer Sister Family history of diabetes mellitus Other No family history of adverse response to anesthesia Social History Smoking Status: Former smoker Second Hand Exposure: Yes ( A CHILD); Hx Alcohol Use: Yes Alcohol type: wine and hard liquor Preferred Language: Maltese Communication Ability: Effective Visual Impairment: No Limitations 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 Required: No Beliefs That Will Affect Care: None Current Living Situation: Spouse Feels Safe at Home: Yes Assistive Devices: Glasses Review of Systems Review of Systems: The patient denies chest pain, palpitations, shortness of breath, dyspnea on exertion, cough, lower extremity swelling, sore throat, fevers, chills, sweats, nausea, vomiting, diarrhea , constipation, abdominal pain, pelvic pain, blood in urine or stool, dysuria, urinary frequency or urgency, loss of consciousness, rash, abnormal bruising or bleeding, focal weakness, numbness or tingling in arms, generalized arthralgias or myalgias, back or neck pain, or night sweats. The review of systems is otherwise negative other than for that already noted above, and at least 10 systems have been reviewed. Physical Exam Physical Exam: The patient is awake, alert and oriented 3, well developed and well nourished, normocephalic and atraumatic, lying in bed and in no acute distress. HEENT--PERRL, EOMI, mucous membranes and oropharynx normal. Neck--supple. No JVD. No bruits. Thyroid normal, trachea midline, no adenopathy. Heart--normal S1 and S2. No murmurs, rubs or gallops. Lungs--clear bilaterally, no respiratory distress, no accessory muscle use. Abdomen--normal bowel sounds and soft. Nontender. Nondistended. Extremities--no cyanosis or clubbing. No edema. Dermatologic--normal skin turgor, normal color, no abnormal lymph nodes, no rash. Neurologic--cranial nerves II through XII grossly intact. Rheumatologic--normal range of motion. Psychiatric--normal affect. Results & Data Results & Data ([facility]) Vital Signs (Past 12 Hours) Vital Signs Temp Pulse Resp BP Pulse Ox 12/07/20 02:30 62 22 152/90 H 97 12/07/20 02:15 64 20 152/72 H 97 12/07/20 02:00 64 22 146/83 H 97 12/07/20 01:45 63 22 141/79 H 97 12/07/20 01:30 65 22 148/75 H 97 12/07/20 01:15 65 26 H 139/77 97 12/07/20 01:00 68 18 144/92 H 97 12/07/20 00:59 66 16 156/77 H 97 12/07/20 00:00 63 15 98 12/06/20 23:30 66 22 96 12/06/20 23:05 69 19 98 12/06/20 22:43 69 22 143/79 H 12/06/20 22:38 98.4 F 70 14 143/79 H 99 Laboratory Results Laboratory Results WBC 7.91 K/uL (4.8-10.8) 12/06/20 23:00 RBC 3.47 M/uL (4.7-6.1) L 12/06/20 23:00 Hgb 10.7 g/dL (14.0-18.0) L 12/06/20 23:00 Hct 32.9 % (42-52) L 12/06/20 23:00 MCV 94.8 fL (80-100) 12/06/20 23:00 MCH 30.8 pg (25-34) 12/06/20 23:00 MCHC 32.5 g/dL (32-36) 12/06/20 23:00 RDW Std Deviation 51.5 fL (36.4-46.3) H 12/06/20 23:00 RDW Coeff of Miranda 15.0 % (11.5-14.5) H 12/06/20 23:00 Plt Count 307 K/uL (130-400) 12/06/20 23:00 MPV 10.2 fL (7.4-10.4) 12/06/20 23:00 Immature Gran % (Auto) 0.3 % 12/06/20 23:00 Neut % (Auto) 77.5 % 12/06/20 23:00 Lymph % (Auto) 13.7 % 12/06/20 23:00 Canyon % (Auto) 6.4 % 12/06/20 23:00 Eos % (Auto) 1.8 % 12/06/20 23:00 Baso % (Auto) 0.3 % 12/06/20 23:00 Neut # (Auto) 6.14 K/uL (1.4-6.5) 12/06/20 23:00 Lymph # (Auto) 1.08 K/uL (1.2-3.4) L 12/06/20 23:00 Canyon # (Auto) 0.51 K/uL (0.11-0.59) 12/06/20 23:00 Eos # (Auto) 0.14 K/uL (0-0.5) 12/06/20 23:00 Baso # (Auto) 0.02 K/uL (0-0.2) 12/06/20 23:00 Immature Gran # (Auto) 0.02 K/uL (0.00-0.02) 12/06/20 23:00 Sodium 140 mmol/L (136-145) 12/06/20 23:00 Potassium 3.8 mmol/L (3.5-5.1) 12/06/20 23:00 Chloride 109 mmol/L (98-107) H 12/06/20 23:00 Carbon Dioxide 24 mmol/L (21-32) 12/06/20 23:00 Anion Gap 6.0 (3-11) 12/06/20 23:00 BUN 26 mg/dl (7-18) H 12/06/20 23:00 Creatinine 0.87 mg/dl (0.6-1.4) 12/06/20 23:00 Est Cr Clr Drug Dosing 75.6 ml/min 12/06/20 23:00 Est GFR ( Amer) 95.1 ml/min 12/06/20 23:00 Est GFR (Non-Af Amer) 82.1 ml/min 12/06/20 23:00 BUN/Creatinine Ratio 29.7 (10-20) H 12/06/20 23:00 Glucose 167 mg/dl (70-99) H 12/06/20 23:00 Calcium 9.2 mg/dl (8.5-10.1) 12/06/20 23:00 Magnesium 1.9 mg/dl (1.8-2.4) 12/06/20 23:00 Total Bilirubin 0.4 mg/dl (0.2-1) 12/06/20 23:00 AST 12 U/L (15-37) L 12/06/20 23:00 ALT 12 U/L (12-78) 12/06/20 23:00 Alkaline Phosphatase 66 U/L (45-117) 12/06/20 23:00 Troponin I < 0.015 ng/ml (0-0.045) 12/06/20 23:00 Total Protein 7.2 gm/dl (6.4-8.2) 12/06/20 23:00 Albumin 3.6 gm/dl (3.4-5.0) 12/06/20 23:00 Globulin 3.6 gm/dl (2.5-4.0) 12/06/20 23:00 Albumin/Globulin Ratio 1.0 (0.9-2) 12/06/20 23:00 TSH 1.220 uIu/ml (0.300-4.500) 12/06/20 23:00 COVID-19 Eval Order Covid19 at [facility] 12/07/20 01:30 SARS-CoV-2 (PCR) NEGATIVE (Negative) 12/07/20 01:30 Code Status & VTE Plan Code Status Full code VTE Prophylaxis Plan VTE Prophylaxis will be ordered: Yes PG Care Time/CCT Total # of Minutes Spent Total Time Spent with Patient: Total time spent is greater than 50% in coordination of care (as documented) at patient's floor/unit and/or counseling patient: Coding Level of Care Code 53689 OBS Care - Level 3 Diagnoses Ataxia R27.0 Frequent falls R29.6 Hypoxic brain injury G93.1 Diabetes mellitus E11.9 Hypercholesterolemia E78.00 Essential hypertension I10 Enlarged prostate with lower urinary tract symptoms (LUTS) N40.1
[2020-12-07] MEDS ORDERED: DEXTROSE 50% 50 ML SYRINGE IV PRN (04:18)
[2020-12-07] MEDS ORDERED: GLUCAGON FOR INJ 1 MG VIAL SQ PRN (04:18)
[2020-12-07] MEDS ORDERED: CARBOHYDRATES FOR HYPOGLYCEMIA PO PRN (04:18)
[2020-12-07] MEDS ORDERED: ONDANSETRON INJ 2 MG/ML 2 ML VIAL IV PRN (04:18)
[2020-12-07] MEDS ORDERED: GLUCOSE 10 TABS/TUBE PO PRN (04:18)
[2020-12-07] MEDS ORDERED: ACETAMINOPHEN 325 MG TAB PO PRN (04:18)
[2020-12-07] MEDS ORDERED: GLUCOSE 40% GEL 15 GM TUBE PO PRN (04:18)
[2020-12-07 06:04] LABS: Estimated Average Glucose 126 mg/dl
--- NOTE | 2020-12-07 06:04 | XRay Report ---
XR chest 1V portable CLINICAL HISTORY: Chest pain status post trauma COMPARISON STUDY: 12/18/2019 FINDINGS: There are postsurgical changes of a midline sternotomy. The heart is borderline enlarged. T he patient appears hyperinflated. There is no failure. There is no focal pulmonary consolidation. The re are no pleural effusions. No pneumothorax is visualized.[ IMPRESSION: No active disease in the chest. ACT 112: Negative or not required by law. Electronically signed by: Cl Gregory M.D. 12/07/2020 6:03 AM
--- NOTE | 2020-12-07 06:09 | XRay Report ---
XR wrist RT min 3V routine CLINICAL HISTORY: Right wrist pain status post trauma COMPARISON: None. DISCUSSION: There are moderate arthritic changes. There are vascular calcifications present. No acute fractures or dislocations are visualized. IMPRESSION: 1. No acute fractures 2. Degenerative change ACT 112: Negative or not required by law. Electronically signed by: Cl Gregory M.D. 12/07/2020 6:08 AM
--- NOTE | 2020-12-07 06:12 | XRay Report ---
XR hip RT 2V w pelvis CLINICAL HISTORY: Right hip pain status post trauma COMPARISON: July 2016 DISCUSSION: There are advanced osteoarthritic changes present within the right hip with joint space n arrowing and prominent osteophytic spurs. No acute fractures or dislocations are visualized. Vascular calcifications are noted. IMPRESSION: Progressive advanced osteoarthritic change. No acute fractures ACT 112: Negative or not required by law. Electronically signed by: Cl Gregory M.D. 12/07/2020 6:11 AM
--- NOTE | 2020-12-07 06:13 | XRay Report ---
XR shoulder RT min 2V routine CLINICAL HISTORY: Right shoulder pain status post trauma COMPARISON: March 2015 DISCUSSION: No acute fractures or dislocations are visualized. There are mild degenerative changes. D egenerative changes are also present within the AC joint. IMPRESSION: No fractures or dislocations identified. ACT 112: Negative or not required by law. Electronically signed by: Cl Gregory M.D. 12/07/2020 6:11 AM
[2020-12-07] MEDS ORDERED: NON-FORMULARY MEDICATION (Coenzyme Q10 [Co Q-10] 200 mg Capsule) PO SCH (09:00)
[2020-12-07] MEDS: INSULIN ASPART 100 UNITS/ML 3 ML PEN SC SCH ×4 (09:06→21:29)
[2020-12-07] MEDS: CYANOCOBALAMIN 500 MCG TABLET (VITAMIN B-12) PO SCH (09:14)
[2020-12-07] MEDS: PSYLLIUM 58.6% POWDER PACKET PO SCH (09:14)
[2020-12-07] MEDS: allopurinoL 300 MG TAB PO SCH (09:14)
[2020-12-07] MEDS: FENOFIBRATE NANOCRYSTALLIZED 145 MG TABLET PO SCH (09:14)
[2020-12-07] MEDS: CLOPIDOGREL BISULFATE 75 MG TAB PO SCH (09:14)
[2020-12-07] MEDS: THIAMINE HCL 100 MG TAB PO SCH (09:15)
[2020-12-07] MEDS: CEROVITE ADV FORMULA TAB PO SCH (09:15)
--- NOTE | 2020-12-07 09:39 | Neurology Consultation ---
Date of Consultation December 07, 2020 Assessment & Plan (1) Frequent falls: (2) Hypoxic brain injury: (3) Ataxia: History of hypoxic brain injury in the context of TAVR procedure last month at [facility]. Had an isolated tonic seizure at that time in the context of cerebral anoxia. No further convulsive episodes and has tapered off Keppra. Patient has been having ongoing difficulty with gait, balance, episodic feeling of weakness/wobbliness of the legs with walking short di stances. He does have mild ataxia with [id number] bilaterally. Did not display obvious orthostatic tremor or myoclonus with standing up at bedside for less than 1 minute. I would recommend the patient restart Keppra. Keppra may be useful for orthostatic myoclonus although it is unclear at this time if this is the actual issue. Nonetheless, he seems to be doing worse after this medication was discontinued earlier this month. Would recommend Keppra 500 mg p.o. twice daily. I do not think he needs another EEG at this time. Would also like this patient to have a brain MRI completed to exclude cerebellar infarcts which of present may be subacute or chronic. Patient should continue with daily low-dose aspirin and clopidogrel. History of Present Illness Reason for Consultation: Frequent falls Requesting Physician: Paddy Dickson MD Attending Physician: Arnol Gracia History of Present Illness The patient is a 80-year-old male who is known to me, I evaluated him for initial consultation in neurology clinic on November 21, 2020 for further evaluation of mild cognitive problems occurring after cardiac arrest/pulseless electrical activity lasting about 6 minutes resulting in anoxic brain injury after undergoing TAVR procedure at [facility] last month.At that time, he did have some tonic stiffening of the limbs potentially worrisome for anoxic seizure activity. He was evaluated by neurology at [facility] as well and had an unremarkable CT of the head including CT angiogram of the head and neck. An EEG at that time revealed encephalopathy, negative for epileptiform abnormalities. He was started on Keppra although had not experienced any further seizure-like episodes and this medication was subsequently tapered off after my assessment with him on November 21. It is also been noted that his cognitive functioning has significantly improved. My plan was to reassess him in 1 year given his overall neurological stability. The patient did present to the emergency department late last night for further evaluation and management of episodic weakness, dizziness, and recurrent falls that been problematic over the past week. The patient indicates that these episodes will occur when he is standing or walking, sometimes short distances, he will feel vaguely dizzy and lightheaded and notes that his legs will shake and feel weak. He does remark that the left leg seems to be a bit more involved than the right with 1 of these spells. No associated loss of consciousness. No obvious convulsive activity has been observed. He denies significant low back pain. No associated alteration in awareness of these events. Allergies Allergy/AdvReac Type Severity Reaction Status Date / Time mold Allergy Intermediate SNEEZING, Verified 12/06/20 23:23 CONGESTION Home Medications Medication Instructions Recorded Confirmed Type allopurinol 300 mg tablet 300 mg PO QAM tab 02/09/19 12/06/20 History ascorbic acid (vitamin C) 500 mg 500 mg PO 3XWK tab 02/09/19 12/06/20 History tablet fenofibrate nanocrystallized 145 145 mg PO QAM tab 02/09/19 12/06/20 History mg tablet pravastatin 20 mg tablet 20 mg PO PM tab 02/09/19 12/06/20 History psyllium husk 3.4 gram/5.4 gram 0.5 tbsp PO QAM gm 02/09/19 12/06/20 History oral powder Centrum Silver Men 1 tab PO 4XWK 01/10/20 12/06/20 History coenzyme Q10 [Co Q-10] 200 mg PO QAM 01/10/20 12/06/20 History metformin 850 mg PO QAM 01/10/20 12/06/20 History metoprolol succinate 75 mg PO QPM 08/09/20 12/06/20 History cholecalciferol (vitamin D3) 50 25 mcg PO 3XWK tab 11/14/20 12/06/20 History mcg (2,000 unit) tablet vitamin B complex 1 tab PO 3XWK tab 11/21/20 12/06/20 History aspirin 81 mg PO QPM 12/06/20 12/06/20 History clopidogrel [Plavix] 75 mg PO QAM 12/06/20 12/06/20 History cyanocobalamin (vitamin B-12) 1,000 mcg SUBLINGUAL 4XWK 12/06/20 12/06/20 History [Vitamin B-12] finasteride 5 mg PO QPM 12/06/20 12/06/20 History levetiracetam 500 mg PO BID 12/06/20 12/06/20 History ramipril 10 mg PO QAM 12/06/20 12/06/20 History tamsulosin 0.4 mg PO QAM 12/06/20 12/06/20 History thiamine HCl (vitamin B1) 100 mg PO 4XWK 12/06/20 12/06/20 History Patient History Medical History Aortic valve disorder SEES DR. COLEMAN. S/P AV replacement X 2. Atypical mycobacterial infection RESOLVED BPH (benign prostatic hyperplasia) Cardiac arrest Congestive heart failure Euvolemic on exam at [facility] Elevated prostate specific antigen (PSA) Endocarditis 5 YRS AGO to first bioprosthetic valve. S/p antibiotic treatment and 2nd AV replacement. Current prosthesis does have a moderate degree of stenosis, but patient is asymptomatic and cardiology monitoring with routine echos until patient develops symptoms. Environmental allergies Esophageal reflux Controlled/resolved with diet changes. Essential hypertension Extrinsic asthma NEVER HAS USED INHALER Hiatal hernia Hx of gout Hypercholesterolemia Osteoarthritis Type 2 diabetes mellitus NIDDM Surgical History Heart valve replaced by other means X2> LAST ONE 5 YRS AGO> [facility] > [facility] > FOLLOWS [facility] COLEMAN History of appendectomy History of cardiac cath 16 YRS AGO [facility] History of colonoscopy History of hemorrhoidectomy History of tonsillectomy History of tooth extraction History of total knee replacement BILAT History of urologic surgery HX CYSOLITHOPAXY FOR BLADDER STONE Hx of inguinal hernia repair S/P PICC central line placement HX > HAD FOR ENDOCARDITIS Family History Mother Diabetes Uncle Colon cancer Sister Family history of diabetes mellitus Other No family history of adverse response to anesthesia Social History Smoking Status: Former smoker Second Hand Exposure: Yes ( A CHILD); Hx Alcohol Use: Yes Alcohol type: wine and hard liquor Preferred Language: Luxembourger Communication Ability: Effective Visual Impairment: No Limitations 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 Required: No Beliefs That Will Affect Care: None Current Living Situation: Spouse Feels Safe at Home: Yes Assistive Devices: Glasses Review of Systems Constitutional: no fever and no chills Eyes: no blind spots and no diplopia Ear, Nose, Mouth, Throat: no hearing loss Respiratory: no cough and no dyspnea Cardiovascular: no chest pain and no palpitations Gastrointestinal: no nausea and no vomiting Genitourinary: no dysuria Musculoskeletal: no myalgia Integumentary: no rash and no lesions Neurologic: as per Subjective / HPI, + unsteadiness and + dizziness; no headache(s), no abnormal speech and no memory loss Psychiatric: no depression and no anxiety Hematologic / Lymphatic: no easy bleeding and no easy bruising Exam (Neuro) Constitutional: well developed and well nourished; no acute distress Eyes: normal visual ibarra by confrontation, PERRL, normal accommodation and EOM intact bilaterally; no fundoscopic abnormality, no nystagmus and no papilledema Cardiovascular: Vessels: normal carotid upstroke; no carotid bruit Neurologic: Oriented to:: Person, Place and Time Memory: Short Term Intact and Remote Intact Attention: Span Intact and Concentration Intact Language: Naming Objects and Repeating Phrases Speech Fluency: negative Dysarthria Speech Aphasia: negative Aphasia Fund of Knowledge: Current Events, Past History and Vocabulary Cranial Nerves: Normal II (Visual ibarra full to confrontation, visual acuity normal), III, IV, (Pupils equal round reactive to light and accommodation, eye movements normal), V (Facial sensation intact), VII (There is no facial droop or weakness), VIII (Hearing intact), IX, X (Palate elevates to midline), XI (Shoulder shrug intact) and XII (Tongue protrudes to midline) Motor Strength: Normal Lower Extremities and Normal Upper Extremities; negative Pronator Drift Motor Tone: Normal Lower Extremities and Normal Upper Extremities Muscle Bulk/Involuntary Movements: No Involuntary Movements; negative Muscle Atrophy Sensation: Light Touch Intact, Pain/Temperature Intact, Vibration Intact and Proprioception Intact Coordination: Normal and Heel-Mendoza Abnormal (Mild ataxia noted with [id number] bilaterally.) Laterality: Bilateral; negative Limited Balance, Dysdiadochokinesia and Finger-Nose Abnormal Deep Tendon Reflexes: Rt Triceps: 2+, Lt Triceps: 2+, Rt Biceps: 2+, Lt Biceps: 2+, Rt Brachioradialis: 2+, Lt Brachioradialis: 2+, Rt Patellar: 2+, Lt Patellar: 2+, Rt Ankle: 2+ and Lt Ankle: 2+ Special Tests: negative Babinski Present Gait: Ataxic (Mild); negative Normal Station and Gait (Patient feels very unsteady on his feet. Had him stand at bedside for about 40 seconds, did not observe any orthostatic tremor or abnormal movements.) Results & Data ([facility]) Vital Signs (Past 12 Hours) Vital Signs Temp Pulse Pulse Resp BP BP Pulse Ox 12/07/20 07:07 60 12/07/20 04:18 36.6 C 69 16 180/74 H 96 12/07/20 03:45 61 14 156/76 H 97 12/07/20 03:30 62 21 144/76 H 97 12/07/20 03:15 62 20 143/72 H 98 12/07/20 03:00 65 23 156/90 H 98 12/07/20 02:45 62 21 150/86 H 98 12/07/20 02:30 62 22 152/90 H 97 12/07/20 02:15 64 20 152/72 H 97 12/07/20 02:00 64 22 146/83 H 97 12/07/20 01:45 63 22 141/79 H 97 12/07/20 01:30 65 22 148/75 H 97 12/07/20 01:15 65 26 H 139/77 97 12/07/20 01:00 68 18 144/92 H 97 12/07/20 00:59 66 16 156/77 H 97 12/07/20 00:00 63 15 98 12/06/20 23:30 66 22 96 12/06/20 23:05 69 19 98 12/06/20 22:43 69 22 143/79 H 12/06/20 22:38 36.9 C 70 14 143/79 H 99 Laboratory Results WBC 7.91, hemoglobin 10.7, hematocrit 32.9, platelet count 307, sodium 140, potassium 3.8, BUN 26, creatinine 0.87, glucose 167, hemoglobin A1c 6.0, calcium 9.2, magnesium 1.9, AST 12, ALT 12 total CK 58, troponin less than 0.015, vitamin B12 561, TSH 1.220 An electrocardiogram reveals a sinus rhythm with first-degree AV block, 70 bpm. Coding Level of Care Code 02438 Initial Inpt Care Lvl 3 Diagnoses Frequent falls R29.6 Hypoxic brain injury G93.1 Ataxia R27.0
--- NOTE | 2020-12-07 10:39 | Magnetic Resonance Report ---
MRI OF THE BRAIN WITHOUT CONTRAST CLINICAL HISTORY: frequent falls, hypoxic brain injury COMPARISON STUDY: None. FINDINGS: Sagittal T1, axial diffusion, proton density and T2 weighted axial, coronal FLAIR, and axial T1-weigh jerri images were acquired. No intra or extra-axial mass lesions are visualized Axial diffusion-weighted images reveal no evidence of acute or subacute infarction. There is no evidence of ventricular dilatation. Proton density T2-weighted and FLAIR images reveal scattered foci of increased T2 signal within the w candelaria matter, likely on a small vessel basis. 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 Gradient echo images reveal a few punctate scattered foci of susceptibility artifact consistent with prior microhemorrhages or calcifications IMPRESSION: 1. No acute intracranial findings 2. No evidence of acute or subacute infarction 3. No evidence of intracranial mass on this noncontrast study 4. Gradient echo images reveal a few punctate scattered foci of susceptibility artifact, consistent w ith prior microhemorrhages or calcifications. ACT 112: Negative or not required by law. Electronically signed by: Cl Gregory M.D. 12/07/2020 10:38 AM
[2020-12-07] MEDS: levETIRAcetam 500 MG TAB PO SCH ×2 (12:36→21:07)
[2020-12-07 17:15] LABS: Appearance Urine Turbid (Clear); Bacteria Urine Automated 3+ (Negative); Bilirubin Urine Negative (Negative); Blood Urine 2+ (Negative); Color Urine Yellow; Epithelial Cell Urine Auto 0-5 /lpf (0-5); Glucose Urine UA Negative (Negative); Ketones Urine Negative (Negative); Leukocyte Esterase Urine 3+ (Negative); Nitrite Urine Positive (Negative); Protein Urine 1+ (Negative); Specific Gravity Urine 1.013 (1.000-1.030); Urobilinogen Urine Negative (Negative); WBC Urine Automated >30 /hpf (0-5)
[2020-12-07 17:54] LABS: Lyme Ab IgG w/WB Rflx Negative (Negative); Lyme Ab IgM w/WB Rflx Negative (Negative)
--- NOTE | 2020-12-07 19:12 | Hospitalist Progress Note ---
Date of Service December 07, 2020 Assessment & Plan (1) Frequent falls: patient describes both legs "giving way/giving out" and having to fall due to such. if he falls he often feels like he will fall to the left. 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 (symptoms should be ipsilateral). I do appreciate Dr Lovelace's consult. he advises resumption of his keppra. b/l symptoms typically confer a more systemic issue. he already takes b12 and b1 supplements thus unlikely to be deficient on either and thus will defer checking these 2 vitamins. lyme testing/screen negative. u/a highly suggestive of UTI - this could easily be the reason for his pre sentation. he just had a youssef in place for nearly a month and had it removed on 11/28. send culture. start rocephin 2gm IV daily; broaden if necessary. PT eval appreciated. await OT eval. (2) UTI (urinary tract infection): suspected send culture rocephin IV daily needs MAUREEN - r/o prostatitis recent youssef - now removed (3) Ataxia: Ataxia/frequent falls/leg weakness -- due to UTI? old cerebellar stroke? other pathology? if symptoms persist despite Rx of UTI consider dedicated l-spine and t-spine MRIs to exclude a cord issue giving him b/l leg symptoms. MRI brain negative for acute findings. 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 He seems to be doing extraordinarily well despite the recent events. MRI brain w/ old cerebellar lacune - suspect chronic. If he had had a fresh cerebellar stroke his symptoms would have started at the time of his previous hospitalization. (5) Diabetes mellitus: Hold Metformin. Novolog sliding scale. (6) Hypercholesterolemia: Continue pravastatin 20 mg daily LDL 97 in August 2020 (7) Essential hypertension: controlled. continue aspirin, clopidogrel. (8) Enlarged prostate with lower urinary tract symptoms (LUTS): Continue finasteride Continue flomax MAUREEN in am -- r/o prostatitis in light of UTI/abnormal u/a follow culture (9) History of cardiac arrest: 10/2020 -- PEA arrest. at [facility]. during his [place]AVR procedure. 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 this leads to a sensation that he will fall, and he typically falls to his left. denies vertigo. denies dizziness/lightheadedness. denies focal motor weakness of arms or legs. symptoms started about 1-2 weeks. interestingly, after he left [facility] in October, he was "doing well" at home and making good progress with PT/OT at his house. he wasn't experiencing ANY ataxia, weakness in legs, or falls in the first 2 weeks at home. spoke with by phone - she reports he had had a youssef in place when he left [place] in October, went home with such. followed up with urology - ultimately had catheter d/c on 11/28/20 and has been voiding spontaneously since. low-grade fever of 99 about 1 week ago. Review of Systems Constitutional: + weakness (legs); no chills, no body aches, no fatigue and no anorexia Respiratory: no cough, no dyspnea and no dyspnea on exertion Cardiovascular: no chest pain Gastrointestinal: no abdominal pain, no nausea, no vomiting and no diarrhea/loose stools Genitourinary: + as per Subjective / HPI and + difficulty urinating Musculoskeletal: no radicular pain Integumentary: no rash Neurologic: + unsteadiness; no paralysis, no loss of sensation, no tingling, no numbness, no paresthesia and no headache(s) Physical Exam Constitutional: well developed and well nourished; no acute distress and no altered mental status Eyes: PERRL; no nystagmus ENMT: external ear and nose normal, oropharynx normal Respiratory: normal respiratory effort, lungs clear to auscultation Auscultation: + rales (scant - bases ); no wheezes Cardiovascular: Rate/Rhythm: regular rate and regular rhythm Heart Sounds: normal S1, normal S2 and + murmur (1/6 systolic LSB) Vessels: posterior tibial pulses present and dorsalis pedis pulses present; no JVD Extremities: no edema Gastrointestinal (Abdomen): normal bowel sounds, soft, nontender, no hepatosplenomegaly Neurologic: finger/nose/finger maneuver w/o ataxia b/l upper ext. gait not assessed. no facial droop. speech clear/fluent. strength 5/5 x 4 exts. Psychiatric: Orientation: alert and oriented x 3 Results & Data Results & Data ([facility]) Vital Signs (Past 12 Hours) Vital Signs Temp Pulse Resp BP Pulse Ox 12/07/20 15:50 36.6 C 64 18 142/90 H 99 12/07/20 15:21 98 12/07/20 09:23 36.5 C 57 L 20 170/77 H 99 Laboratory Results Laboratory Results - last 24 hr 12/06/20 12/06/20 12/07/20 23:00 23:00 01:30 WBC 7.91 RBC 3.47 L Hgb 10.7 L Hct 32.9 L MCV 94.8 MCH 30.8 MCHC 32.5 RDW Std Deviation 51.5 H RDW Coeff of Miranda 15.0 H Plt Count 307 MPV 10.2 Immature Gran % (Auto) 0.3 Neut % (Auto) 77.5 Lymph % (Auto) 13.7 [place] % (Auto) 6.4 Eos % (Auto) 1.8 Baso % (Auto) 0.3 Neut # (Auto) 6.14 Lymph # (Auto) 1.08 L [place] # (Auto) 0.51 Eos # (Auto) 0.14 Baso # (Auto) 0.02 Immature Gran # (Auto) 0.02 ESR Sodium 140 Potassium 3.8 Chloride 109 H Carbon Dioxide 24 Anion Gap 6.0 BUN 26 H Creatinine 0.87 Est Cr Clr Drug Dosing 75.6 Est GFR ( Amer) 95.1 Est GFR (Non-Af Amer) 82.1 BUN/Creatinine Ratio 29.7 H Glucose 167 H POC Glucose Estimat Average Glucose Hemoglobin A1c Calcium 9.2 Magnesium 1.9 Total Bilirubin 0.4 AST 12 L ALT 12 Alkaline Phosphatase 66 Troponin I < 0.015 Total Protein 7.2 Albumin 3.6 Globulin 3.6 Albumin/Globulin Ratio 1.0 TSH 1.220 Urine Color Urine Appearance Urine pH Ur Specific King Urine Protein Urine Glucose (UA) Urine Ketones Urine Blood Urine Nitrite Urine Bilirubin Urine Urobilinogen Ur Leukocyte Esterase Urine WBC (Auto) Urine RBC (Auto) U Hyaline Cast (Auto) U Epithel Cells (Auto) Urine Bacteria (Auto) Lyme Disease IgG Ab Lyme Disease IgM Ab COVID-19 Eval Order Covid19 at [facility] SARS-CoV-2 (PCR) 12/07/20 12/07/20 12/07/20 01:30 04:55 04:55 WBC RBC Hgb Hct MCV MCH MCHC RDW Std Deviation RDW Coeff of Miranda Plt Count MPV Immature Gran % (Auto) Neut % (Auto) Lymph % (Auto) [place] % (Auto) Eos % (Auto) Baso % (Auto) Neut # (Auto) Lymph # (Auto) [place] # (Auto) Eos # (Auto) Baso # (Auto) Immature Gran # (Auto) ESR Sodium Potassium Chloride Carbon Dioxide Anion Gap BUN Creatinine Est Cr Clr Drug Dosing Est GFR ( Amer) Est GFR (Non-Af Amer) BUN/Creatinine Ratio Glucose POC Glucose Estimat Average Glucose 126 Hemoglobin A1c 6.0 H Calcium Magnesium Total Bilirubin AST ALT Alkaline Phosphatase Troponin I < 0.015 Total Protein Albumin Globulin Albumin/Globulin Ratio TSH Urine Color Urine Appearance Urine pH Ur Specific King Urine Protein Urine Glucose (UA) Urine Ketones Urine Blood Urine Nitrite Urine Bilirubin Urine Urobilinogen Ur Leukocyte Esterase Urine WBC (Auto) Urine RBC (Auto) U Hyaline Cast (Auto) U Epithel Cells (Auto) Urine Bacteria (Auto) Lyme Disease IgG Ab Lyme Disease IgM Ab COVID-19 Eval Order SARS-CoV-2 (PCR) NEGATIVE 12/07/20 12/07/20 12/07/20 08:04 11:41 16:49 WBC RBC Hgb Hct MCV MCH MCHC RDW Std Deviation RDW Coeff of Miranda Plt Count MPV Immature Gran % (Auto) Neut % (Auto) Lymph % (Auto) [place] % (Auto) Eos % (Auto) Baso % (Auto) Neut # (Auto) Lymph # (Auto) [place] # (Auto) Eos # (Auto) Baso # (Auto) Immature Gran # (Auto) ESR Sodium Potassium Chloride Carbon Dioxide Anion Gap BUN Creatinine Est Cr Clr Drug Dosing Est GFR ( Amer) Est GFR (Non-Af Amer) BUN/Creatinine Ratio Glucose POC Glucose 122 H 114 H 113 H Estimat Average Glucose Hemoglobin A1c Calcium Magnesium Total Bilirubin AST ALT Alkaline Phosphatase Troponin I Total Protein Albumin Globulin Albumin/Globulin Ratio TSH Urine Color Urine Appearance Urine pH Ur Specific King Urine Protein Urine Glucose (UA) Urine Ketones Urine Blood Urine Nitrite Urine Bilirubin Urine Urobilinogen Ur Leukocyte Esterase Urine WBC (Auto) Urine RBC (Auto) U Hyaline Cast (Auto) U Epithel Cells (Auto) Urine Bacteria (Auto) Lyme Disease IgG Ab Lyme Disease IgM Ab COVID-19 Eval Order SARS-CoV-2 (PCR) 12/07/20 12/07/20 12/07/20 16:50 16:54 16:54 WBC RBC Hgb Hct MCV MCH MCHC RDW Std Deviation RDW Coeff of Miranda Plt Count MPV Immature Gran % (Auto) Neut % (Auto) Lymph % (Auto) [place] % (Auto) Eos % (Auto) Baso % (Auto) Neut # (Auto) Lymph # (Auto) [place] # (Auto) Eos # (Auto) Baso # (Auto) Immature Gran # (Auto) ESR 32 H Sodium Potassium Chloride Carbon Dioxide Anion Gap BUN Creatinine Est Cr Clr Drug Dosing Est GFR ( Amer) Est GFR (Non-Af Amer) BUN/Creatinine Ratio Glucose POC Glucose Estimat Average Glucose Hemoglobin A1c Calcium Magnesium Total Bilirubin AST ALT Alkaline Phosphatase Troponin I Total Protein Albumin Globulin Albumin/Globulin Ratio TSH Urine Color Yellow Urine Appearance Turbid A Urine pH 6.0 Ur Specific King 1.013 Urine Protein 1+ H Urine Glucose (UA) Negative Urine Ketones Negative Urine Blood 2+ H Urine Nitrite Positive A Urine Bilirubin Negative Urine Urobilinogen Negative Ur Leukocyte Esterase 3+ H Urine WBC (Auto) >30 H Urine RBC (Auto) 5-10 H U Hyaline Cast (Auto) 1-5 U Epithel Cells (Auto) 0-5 Urine Bacteria (Auto) 3+ H Lyme Disease IgG Ab Negative Lyme Disease IgM Ab Negative COVID-19 Eval Order SARS-CoV-2 (PCR) Chest X-Ray 12/07/20 00:05 XR chest 1V portable CLINICAL HISTORY: Chest pain status post trauma COMPARISON STUDY: 12/18/2019 FINDINGS: There are postsurgical changes of a midline sternotomy. The heart is borderline enlarged. The patient appears hyperinflated. There is no failure. There is no focal pulmonary consolidation. There are no pleural effusions. No pneumothorax is visualized.[ IMPRESSION: No active disease in the chest. ACT 112: Negative or not required by law. Electronically signed by: Cl Gregory M.D. 12/07/2020 6:03 AM Hip/Pelvis X-Ray 12/07/20 00:05 XR hip RT 2V w pelvis CLINICAL HISTORY: Right hip pain status post trauma COMPARISON: July 2016 DISCUSSION: There are advanced osteoarthritic changes present within the right hip with joint space narrowing and prominent osteophytic spurs. No acute fractures or dislocations are visualized. Vascular calcifications are noted. IMPRESSION: Progressive advanced osteoarthritic change. No acute fractures ACT 112: Negative or not required by law. Electronically signed by: Cl Gregory M.D. 12/07/2020 6:11 AM Wrist X-Ray 12/07/20 00:05 XR wrist RT min 3V routine CLINICAL HISTORY: Right wrist pain status post trauma COMPARISON: None. DISCUSSION: There are moderate arthritic changes. There are vascular calcifications present. No acute fractures or dislocations are visualized. IMPRESSION: 1. No acute fractures 2. Degenerative change ACT 112: Negative or not required by law. Electronically signed by: Cl Gregory M.D. 12/07/2020 6:08 AM Shoulder X-Ray 12/07/20 00:06 XR shoulder RT min 2V routine CLINICAL HISTORY: Right shoulder pain status post trauma COMPARISON: March 2015 DISCUSSION: No acute fractures or dislocations are visualized. There are mild degenerative changes. Degenerative changes are also present within the AC joint. IMPRESSION: No fractures or dislocations identified. ACT 112: Negative or not required by law. Electronically signed by: Cl Gregory M.D. 12/07/2020 6:11 AM Brain MRI 12/07/20 04:18 MRI OF THE BRAIN WITHOUT CONTRAST CLINICAL HISTORY: frequent falls, hypoxic brain injury COMPARISON STUDY: None. FINDINGS: Sagittal T1, axial diffusion, proton density and T2 weighted axial, coronal FLAIR, and axial T1-weighted images were acquired. No intra or extra-axial mass lesions are visualized Axial diffusion-weighted images reveal no evidence of acute or subacute infarction. There is no evidence of ventricular dilatation. Proton density T2-weighted and FLAIR images reveal scattered foci of increased T2 signal within the white matter, likely on a small vessel basis. 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 Gradient echo images reveal a few punctate scattered foci of susceptibility artifact consistent with prior microhemorrhages or calcifications IMPRESSION: 1. No acute intracranial findings 2. No evidence of acute or subacute infarction 3. No evidence of intracranial mass on this noncontrast study 4. Gradient echo images reveal a few punctate scattered foci of susceptibility artifact, consistent with prior microhemorrhages or calcifications. ACT 112: Negative or not required by law. Electronically signed by: Cl Gregory M.D. 12/07/2020 10:38 AM PG Care Time/CCT Total # of Minutes Spent Total Time Spent with Patient: Total time spent is greater than 50% in coordination of care (as documented) at patient's floor/unit and/or counseling patient: Coding Level of Care Code 33456 Subseq Obs Care Lvl 3 Diagnoses Frequent falls R29.6 UTI (urinary tract infection) N39.0 Ataxia R27.0 Hypoxic brain injury G93.1 Diabetes mellitus E11.9 Hypercholesterolemia E78.00 Essential hypertension I10 Enlarged prostate with lower urinary tract symptoms (LUTS) N40.1 History of cardiac arrest Z86.74 S/P TAVR (transcatheter aortic valve replacement) Z95.2 Seizure R56.9 DVT prophylaxis Z29.9
[2020-12-07] MEDS: cefTRIAXone SODIUM 2,000 MG in DEXTROSE 5% 50 ML IV SCH (19:45)
[2020-12-07] MEDS: METOPROLOL SUCC 25MG EXT REL TAB PO SCH (21:06)
[2020-12-07] MEDS: TAMSULOSIN HCL 0.4 MG CAP PO SCH (21:07)
[2020-12-07] MEDS: FINASTERIDE 5 MG TAB PO SCH (21:07)
[2020-12-07] MEDS: ASPIRIN 81 MG ECTAB PO SCH (21:07)
[2020-12-07] MEDS: PRAVASTATIN SOD 20 MG TAB PO SCH (21:10)
[2020-12-08] MEDS: THIAMINE HCL 100 MG TAB PO SCH (08:09)
[2020-12-08] MEDS: allopurinoL 300 MG TAB PO SCH (08:09)
[2020-12-08] MEDS: CYANOCOBALAMIN 500 MCG TABLET (VITAMIN B-12) PO SCH (08:09)
[2020-12-08] MEDS: CLOPIDOGREL BISULFATE 75 MG TAB PO SCH (08:09)
[2020-12-08] MEDS: FENOFIBRATE NANOCRYSTALLIZED 145 MG TABLET PO SCH (08:09)
[2020-12-08] MEDS: PSYLLIUM 58.6% POWDER PACKET PO SCH (08:10)
[2020-12-08] MEDS: CEROVITE ADV FORMULA TAB PO SCH (08:10)
[2020-12-08] MEDS: INSULIN ASPART 100 UNITS/ML 3 ML PEN SC SCH ×4 (08:10→21:00)
[2020-12-08] MEDS: levETIRAcetam 500 MG TAB PO SCH ×2 (08:10→21:18)
[2020-12-08] MEDS: HEPARIN SOD 5,000 UNIT/0.5 ML VIAL SQ SCH ×2 (14:57→21:19)
[2020-12-08] MEDS: cefTRIAXone SODIUM 2,000 MG in DEXTROSE 5% 50 ML IV SCH (18:09)
[2020-12-08] MEDS: FINASTERIDE 5 MG TAB PO SCH (21:16)
[2020-12-08] MEDS: ASPIRIN 81 MG ECTAB PO SCH (21:18)
[2020-12-08] MEDS: PRAVASTATIN SOD 20 MG TAB PO SCH (21:19)
[2020-12-08] MEDS: METOPROLOL SUCC 25MG EXT REL TAB PO SCH (21:19)
[2020-12-08] MEDS: TAMSULOSIN HCL 0.4 MG CAP PO SCH (21:19)
--- NOTE | 2020-12-08 21:52 | Hospitalist Progress Note ---
Date of Service December 08, 2020 Assessment & Plan (1) UTI (urinary tract infection): 2nd GNR. had recent youssef x 1 month -- discontinued about 10 days ago. cont rocephin IV daily. likely will be able to stop IV abx and change to PO abx tomorrow. needs MAUREEN - r/o prostatitis. if present then Rx x 28 days. suspect UTI was primary cause of b/l leg weakness, falls, etc in the week leading up to admission. (2) Frequent falls: patient describes both legs "giving way/giving out" and having to fall due to such. if he falls he often feels like he will fall to the left. 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 (symptoms should be ipsilateral). I do appreciate Dr Lovelace's consult. he advises resumption of his keppra. b/l symptoms typically confer a more systemic issue. would be unusual for a cord or [employer] lesion to cause b/l leg issues. he takes B12 and B1 supplements thus deficiency of either highly unlikely. suspect brewing UTI may have been culprit in his presentation. did well with PT yesterday and OT today. cleared for home w/ with HH services. (3) Ataxia: Ataxia/frequent falls/leg weakness -- due to UTI? old cerebellar stroke? other pathology? combination? if symptoms persist despite Rx of UTI consider dedicated l-spine and t-spine MRIs to exclude a cord issue giving him b/l leg symptoms. MRI brain negative for acute findings. (4) Hypoxic brain injury: Secondary to cardiac arrest intraoperatively during recent TAVR procedure last month at [facility]. He seems to be doing extraordinarily well despite the recent events. MRI brain w/ old cerebellar lacune - suspect chronic. If he had had a fresh cerebellar stroke his symptoms would have started at the time of his previous hospitalization. Mental status very normal today. (5) Diabetes mellitus: Hold Metformin. Novolog sliding scale. BSGs controlled. (6) Hypercholesterolemia: Continue pravastatin 20 mg daily LDL 97 in August 2020 (7) Essential hypertension: controlled. continue aspirin, clopidogrel. (8) Enlarged prostate with lower urinary tract symptoms (LUTS): Continue finasteride Continue flomax MAUREEN needed -- r/o prostatitis in light of UTI (9) History of cardiac arrest: 10/2020 -- PEA arrest. at [facility] [place] [place]. during his TAVR procedure. appears to have made a complete recovery. (10) S/P TAVR (transcatheter aortic valve replacement): 10/2020 [place] follows w/ Dr Elder (11) Seizure: 2nd to hypoxic brain injury was recently taken off keppra Dr Lovelace saw patient in consult - advises resumption of it due to high risk of recurrent seizures darek resumed this admission (12) DVT prophylaxis: start heparin 5000 TID extensively updated by phone yesterday left message on [employer] today anticipate d/c home tomorrow due to complicated UTI and falls will change observation status to full admission status Admission and Anticipated Discharge Date Admission Date: December 08, 2020 Subjective feels "really good" today good spirits, excellent appetite, strong and balanced on feet no dizziness no feeling like he could fall no leg weakness or legs giving way walking to bathroom w/o problems tele overnight wnl Review of Systems Constitutional: no fever, no chills, no fatigue and no anorexia Respiratory: no cough, no dyspnea and no dyspnea on exertion Cardiovascular: no chest pain Gastrointestinal: no abdominal pain, no nausea and no vomiting Physical Exam Constitutional: well developed and well nourished; no acute distress and no altered mental status ENMT: external ear and nose normal, oropharynx normal Respiratory: normal respiratory effort, lungs clear to auscultation Cardiovascular: Rate/Rhythm: regular rate and regular rhythm Heart Sounds: normal S1, normal S2 and + murmur (1/6 systolic LSB) Vessels: posterior tibial pulses present and dorsalis pedis pulses present; no JVD Extremities: no edema Gastrointestinal (Abdomen): normal bowel sounds, soft, nontender, no hepatosplenomegaly Neurologic: moves all extremities; no focal motor deficits Cranial Nerves: normal facial strength Coordination: normal [id number] test and normal [id number] test Psychiatric: Orientation: alert and oriented x 3 Results & Data Results & Data ([facility]) Vital Signs (Past 12 Hours) Vital Signs Temp Pulse Pulse Resp BP Pulse Ox 12/08/20 20:00 37.1 C 64 18 129/70 96 12/08/20 15:27 36.4 C L 57 L 20 117/67 98 12/08/20 15:08 62 12/08/20 11:41 36.5 C 62 18 113/65 97 Laboratory Results Laboratory Results - last 24 hr 12/08/20 12/08/20 12/08/20 07:36 11:34 16:18 POC Glucose 125 H 116 H 105 H 12/08/20 20:52 POC Glucose 131 H Diagnostic Findings urine cx - >100,000 CFU GNR PG Care Time/CCT Total # of Minutes Spent Total Time Spent with Patient: Total time spent is greater than 50% in automotive parts coordinator rdination of care (as documented) at patient's floor/unit and/or counseling patient: Coding Level of Care Code 33122 Subseq Hosp Care Lvl 2 Diagnoses UTI (urinary tract infection) N39.0 Frequent falls R29.6 Ataxia R27.0 Hypoxic brain injury G93.1 Diabetes mellitus E11.9 Hypercholesterolemia E78.00 Essential hypertension I10 Enlarged prostate with lower urinary tract symptoms (LUTS) N40.1 History of cardiac arrest Z86.74 S/P TAVR (transcatheter aortic valve replacement) Z95.2 Seizure R56.9 DVT prophylaxis Z29.9
[2020-12-09] MEDS: HEPARIN SOD 5,000 UNIT/0.5 ML VIAL SQ SCH ×2 (06:28→14:51)
[2020-12-09 06:58] LABS: BUN Creatinine Ratio 22.7 (10-20); Calcium 9.1 mg/dl (8.5-10.1); Creatinine Clr Calc Pharmacy 81.2 ml/min; Est GFR (Non-African American) 84.5 ml/min; Potassium 4.2 mmol/L (3.5-5.1)
[2020-12-09 07:03] LABS: Ferritin 78.7 ng/ml (8-388)
[2020-12-09] MEDS ORDERED: ERTAPENEM SODIUM 1,000 MG in SODIUM CHLORIDE 0.9% 50 ML IV SCH (08:30)
[2020-12-09] MEDS: CLOPIDOGREL BISULFATE 75 MG TAB PO SCH (08:39)
[2020-12-09] MEDS: allopurinoL 300 MG TAB PO SCH (08:40)
[2020-12-09] MEDS: FENOFIBRATE NANOCRYSTALLIZED 145 MG TABLET PO SCH (08:40)
[2020-12-09] MEDS: PSYLLIUM 58.6% POWDER PACKET PO SCH (08:41)
[2020-12-09] MEDS: levETIRAcetam 500 MG TAB PO SCH (08:41)
[2020-12-09] MEDS: INSULIN ASPART 100 UNITS/ML 3 ML PEN SC SCH ×2 (08:44→12:07)
[2020-12-09] MEDS ORDERED: ASCORBIC ACID 500 MG TAB PO SCH (09:00)
[2020-12-09] MEDS ORDERED: CHOLECALCIFEROL 1,000 UNITS 25 MCG TAB PO SCH (09:00)
[2020-12-09] MEDS ORDERED: VITAMIN B COMPLEX TAB PO SCH (09:00)
--- NOTE | 2020-12-09 09:31 | XCELERA ---
[id number]
--- NOTE | 2020-12-09 12:54 | Electrocardiogram Report ---
Test Reason : Blood Pressure : / mmHG Vent. Rate : 070 BPM Atrial Rate : 070 BPM P-R Int : 240 ms QRS Dur : 120 ms QT Int : 408 ms P-R-T Axes : 104 -17 170 degrees QTc Int : 440 ms Poor data quality, interpretation may be adversely affected Sinus rhythm with 1st degree A-V block Incomplete left bundle block Abnormal ECG When compared with ECG of 11-JAN-2020 09:57, IN interval has increased Incomplete left bundle block is now Present Confirmed by Sim Hunt ([id number]) on 12/09/2020 12:54:26 PM Referred By: REFERRED SELF Confirmed By:Sim Hunt
--- NOTE | 2020-12-09 13:12 | Discharge Summary ---
Date of Service date of admission - December 07, 2020 date of discharge - December 09, 2020 Admission HPI Per Admitting Provider The patient is a 80-year-old male with a past medical history including seizure, pneumonia, sepsis, aortic valve endocarditis s/p AVR, diabetes mellitus, BPH with LUTS, hypertension, hypercholesterolemia, extrinsic asthma, essential hypertension, GERD, CHF, atypical mycobacterial infection and multiple allergies. The patient underwent heart valve surgery (TAVR) on October 24 at [facility] and reportedly had intraoperative cardiac arrest, which was followed by 11 days in the ICU, and during which time the patient sustained hypoxic brain injury. Following his stay at [place] he was discharged to home with home health. He had been making progress with home therapy but then in the last 2-3 weeks he has had frequent falls and dizziness. He then developed generalized weakness in the last 24 hours prompting his to bring him to the ER. Additional information from the ER record - Patient saw his local neurologist about 2 weeks ago, Dr Lovelace, and at that visit the plan was for him to taper off his keppra (started at [facility] for possible seizure activity in setting of his cardiac arrest). Patient indeed is off keppra at time of ER presentation. Patient recently followed up with his local parking lot manager, Dr. Elder, and they discussed the dizziness and weakness with him and he was told to stop taking his ramipril. He has been off the ramipril for 1 week. His stated over the last 2 to 3 weeks he has sustained a total of 4 falls. She states he typically falls to the right, and luckily he has not had any head injuries or significant injury. Patient himself states that his legs feel very weak and they simply buckle. stated he was much weaker and unsteady on his feet yesterday and again today even with the use of his walker. She stated he had not had any fevers or chills. Patient was sent home from [facility] with a youssef catheter due to urinary retention. He finally had this removed about 1 week ago. She also stated he had not had any alcohol since the surgery in October. Principal Diagnosis 1. complicated / catheter-associated ESBL e.coli UTI 2. 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 Discharge Exam Constitutional well developed and well nourished; no acute distress and no altered mental status Eyes PERRL; no nystagmus ENMT external ear and nose normal, oropharynx normal Respiratory normal respiratory effort, lungs clear to auscultation Auscultation: + rales (scant - bases ); no wheezes Cardiovascular Rate/Rhythm: regular rate and regular rhythm Heart Sounds: normal S1, normal S2 and + murmur (1/6 systolic LSB) Vessels: posterior tibial pulses present and dorsalis pedis pulses present; no JVD Extremities: no edema Gastrointestinal (Abdomen) normal bowel sounds, soft, nontender, no hepatosplenomegaly Rectal Exam: no fecal impaction and no rectal tenderness MAUREEN - performed day of discharge - prostate enlarged, smooth, no nodules; not boggy; not tender. Neurologic moves all extremities; no focal motor deficits Cranial Nerves: normal facial strength Coordination: normal amwwxm-[id number]-bdym test and normal yapv-aa-zkln test Psychiatric Orientation: alert and oriented x 3 Discharge Data Allergies Allergy/AdvReac Type Severity Reaction Status Date / Time mold Allergy Intermediate SNEEZING, Verified 12/06/20 23:23 CONGESTION Consultations Neurology - Eusebio Lovelace MD PT, OT Ordered Studies Chest X-Ray 12/07/20 00:05 XR chest 1V portable CLINICAL HISTORY: Chest pain status post trauma COMPARISON STUDY: 12/18/2019 FINDINGS: There are postsurgical changes of a midline sternotomy. The heart is borderline enlarged. The patient appears hyperinflated. There is no failure. There is no focal pulmonary consolidation. There are no pleural effusions. No pneumothorax is visualized.[ IMPRESSION: No active disease in the chest. ACT 112: Negative or not required by law. Electronically signed by: Cl Gregory M.D. 12/07/2020 6:03 AM Hip/Pelvis X-Ray 12/07/20 00:05 XR hip RT 2V w pelvis CLINICAL HISTORY: Right hip pain status post trauma COMPARISON: July 2016 DISCUSSION: There are advanced osteoarthritic changes present within the right hip with joint space narrowing and prominent osteophytic spurs. No acute fractures or dislocations are visualized. Vascular calcifications are noted. IMPRESSION: Progressive advanced osteoarthritic change. No acute fractures ACT 112: Negative or not required by law. Electronically signed by: Cl Gregory M.D. 12/07/2020 6:11 AM Wrist X-Ray 12/07/20 00:05 XR wrist RT min 3V routine CLINICAL HISTORY: Right wrist pain status post trauma COMPARISON: None. DISCUSSION: There are moderate arthritic changes. There are vascular calcifications present. No acute fractures or dislocations are visualized. IMPRESSION: 1. No acute fractures 2. Degenerative change ACT 112: Negative or not required by law. Electronically signed by: Cl Gregory M.D. 12/07/2020 6:08 AM Shoulder X-Ray 12/07/20 00:06 XR shoulder RT min 2V routine CLINICAL HISTORY: Right shoulder pain status post trauma COMPARISON: March 2015 DISCUSSION: No acute fractures or dislocations are visualized. There are mild degenerative changes. Degenerative changes are also present within the AC joint. IMPRESSION: No fractures or dislocations identified. ACT 112: Negative or not required by law. Electronically signed by: Cl Gregory M.D. 12/07/2020 6:11 AM Brain MRI 12/07/20 04:18 MRI OF THE BRAIN WITHOUT CONTRAST CLINICAL HISTORY: frequent falls, hypoxic brain injury COMPARISON STUDY: None. FINDINGS: Sagittal T1, axial diffusion, proton density and T2 weighted axial, coronal FLAIR, and axial T1-weighted images were acquired. No intra or extra-axial mass lesions are visualized Axial diffusion-weighted images reveal no evidence of acute or subacute infarction. There is no evidence of ventricular dilatation. Proton density T2-weighted and FLAIR images reveal scattered foci of increased T2 signal within the white matter, likely on a small vessel basis. 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 Gradient echo images reveal a few punctate scattered foci of susceptibility artifact consistent with prior microhemorrhages or calcifications IMPRESSION: 1. No acute intracranial findings 2. No evidence of acute or subacute infarction 3. No evidence of intracranial mass on this noncontrast study 4. Gradient echo images reveal a few punctate scattered foci of susceptibility artifact, consistent with prior microhemorrhages or calcifications. ACT 112: Negative or not required by law. Electronically signed by: Cl Gregory M.D. 12/07/2020 10:38 AM Echocardiogram - * EF 60-65% * no ASD/PFO / no shunt * AVR gradient wnl * normal LV wall motion Hospital Course (1) UTI (urinary tract infection): Patient was found to have ESBL e.coli UTI. This was likely from recent youssef usage. He had such for about 1 month and it was discontinued about 1 week prior to admission. Thus would consider this a complicated / youssef-catheter associated UTI. MAUREEN did not reveal objective evidence of acute prostatitis. I do suspect that this UTI was a large culprit in his b/l leg weakness, falls, etc in the 1-2 days leading up to admission and perhaps even longer. ESBL e.coli was susceptible to IV Ertapenem. Thus, he received dose #1 prior to discharge. He will receive 6 additional doses via home health following discharge. Recommend a repeat u/a and urine culture at the conclusion of the home antibiotic course for test of cure. If he has evidence of ongoing infection would extend the course 1 additional week. An u/s-guided peripheral IV was placed prior to discharge for his home IV antibiotics. (2) Frequent falls: Suspect that the falls and b/l leg weakness in the days leading up to admission were due to the UTI. As for the falls 2-3 weeks before admission, it is possible that the old lacunar infarct of the RIGHT cerebellum could have been contributing to these. He and his were counseled that it is impossible to date this cerebellar stroke. Patient was seen in consult by Dr Eusebio Lovelace from [facility]. He felt that the old cerebellar lacune could have been contributing to the falls but it was uncertain. Further, the patient really did not have signs of cerebellar dysfunction on examination. Patient was evaluated by PT/OT and he did better with his walking while here. Gait was relatively intact and it was felt that patient could safely return home with his . Home PT/OT were indeed recommended, however, for ongoing reconditioning and gait training. Of note - b12 level was normal earlier in 2020. (3) Ataxia: Ataxia/frequent falls/leg weakness -- due to UTI? old cerebellar stroke? other pathology? combination of factors? 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 No new stroke was seen. It was postulated that perhaps this old stroke was contributing to some of his falls. PT/OT were consulted. They advised ongoing home PT/OT after discharge. (5) Hypoxic brain injury: Secondary to cardiac arrest intraoperatively during recent TAVR procedure, October 2020, at [facility]. He appeared to be doing extraordinarily well despite the recent events. MRI brain w/ old cerebellar lacune - suspect chronic. Nothing acute seen on MRI. Mental status was normal during this stay. (6) Diabetes mellitus: Resume metformin at discharge. Glycemic control was excellent while hospitalized. (7) Hypercholesterolemia: Continue pravastatin 20 mg daily. LDL 97 in August 2020. (8) Essential hypertension: Controlled during this stay. He remains on metoprolol xl and flomax (alpha fredo is primarily for his BPH). Recent LUCY (ramipril) was discontinued PRIOR to the hospitalization due to dizziness. Continue aspirin, clopidogrel. (9) Enlarged prostate with lower urinary tract symptoms (LUTS): Continue finasteride. Continue flomax. MAUREEN without evidence of acute prostatitis. Patient had recent youssef catheter which was successfully removed mid-November 2020. Patient with ESBL e.coli UTI - see above. (10) History of cardiac arrest: 10/2020 -- PEA arrest. at [facility] during his TAVR procedure. appears to have made a near-complete recovery from such. 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 Keppra initiated while hospitalized at [facility]. EEG at [facility] was negative for seizure focus, however. Seen 11/21/[address] Lovelace in the neurology office - keppra was weaned off following that visit. During this stay, however, Dr Lovelace recommended we RESUME the keppra. He will take 500mg BID after discharge. Home Health Attestation I certify that this patient is under my care and that I, or a physicians plumber's assistant working with me, had a face to-face encounter that meets the home health [id number] encounter requirements with this patient. The encounter with the patient was in whole, or in part, for the following medical condition, which is the primary reason for home health care (list medical condition): 6 days of home abx starting tomorrow, 12/10. I certify that, based on my findings, the following services are medically necessary home health services: My clinical findings support the need for the above services because: Caregiver Instruct Med Mgmt, Safety, Disease Process, Signs to Report Medication Compliance and Monitoring Effective of New Medications Skilled Nsg Assessment Further, I certify that my clinical findings support that this patient is homebound (i.e. absences from home require considerable and taxing effort and are for medical reasons or faith services or infrequently or of short duration when for other reasons) because: Certification for Home Health Services: Based on the above findings, I certify that this patient is confined to the home and needs intermittent usp care, physical therapy and/or speech therapy or continues to need occupational therapy. The patient is under my care, and I have initiated the establishment of the plan of care. This patient will be followed by a physician who will periodically review the plan of care. Total Time Total Time Spent Total Time Spent (In Minutes): 45 Total Time Includes: Examination of the Patient, Discharge Planning and Medication Reconciliation Discharge Plan Discharge Items Patient Disposition: Home - Home Health Services Reason For Visit: FREQUENT FALLS, BILATERAL LEG WEAKNESS Discharge Diagnosis: 1. e.coli UTI (urinary tract infection) requiring use of IV antibiotics 2. enlarged prostate but no evidence of prostate infection/prostatitis 3. recent TAVR procedure; echo here with good valve function 4. leg weakness, falls, etc - suspected to be due to #1 above 5. 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 recent cardiac arrest Activity: Resume your previous activity Non-emergency contact: Primary Care Provider Call non-emergency contact if: you have any medication questions, your symptoms worsen and you have a fever Follow-up/Referrals: Eusebio Lovelace MD [Physician] - (1 month ) Mario Alberto Elder DO [Family Provider] - (see Dr Elder as scheduled ) Jace Garcia MD [Primary Care Provider] - (Please schedule a discharge follow-up appointment with Dr Garcia within 5 days) Diet: Carb Consistent or DM2 and Heart Healthy Addtl Attending Provider Instructions: Mr Zee, You were admitted to the hospital because of recent leg weakness and frequent falls at home. You underwent a large work-up to ensure no broken bones, etc. All of your x-rays were negative for fractures or injury. We checked you for stroke and had [facility], Dr Lovelace, see you in consult because of the leg weakness and falls. Your MRI of the brain showed an OLD, small, right-sided cerebellar stroke. It was uncertain if it was directly causing your symptoms but it certainly can cause balance issues. Typically when someone complains of both legs being weak there is a systemic process causing this. Infection often can do this. You were found to have a urinary tract infection caused by e.coli. Unfortunately the e.coli strain is quite resistant to nearly all oral antibiotics and thus you were started on ertapenem antibiotic. This is a once daily, IV antibiotic. You received your first dose on 12/09/20. You will need 6 additional doses of this starting 12/10/20 at your home. I checked your prostate and fortunately you have no evidence of prostate infe ction. At the conclusion of your antibiotic course at home please have Dr Garcia recheck your urine to ensure you have cleared the infection. If it appears the infection has not fully cleared you could potentially need a longer course of antibiotic. However, 7 days in most cases will clear it. You likely got this UTI due to the youssef catheter you had in place for 3-4 weeks. If treating your UTI does not lead to full resolution of the leg weakness and/or your falls continue we would need to look at your lumbar spine to ensure a problem there is not contributing to the leg issues. You were seen by PT and OT - both recommended ongoing home physical & occupational therapy as you recover from your hospital stay in October. STOP your ramipril. Please take your flomax (tamsulosin) medication for your prostate at bedtime rather than in the morning. Finally, Dr Lovelace recommends that you RESTART your keppra (levetiracetam) anti- seizure medication. Take 500mg twice daily every day. Follow-up - see separate section Return to [facility] if - * you have fever over 100 degrees * you develop severe diarrhea * you have worsening weakness in 1 or both legs * you have severe balance troubles, spinning/vertigo, or other neurological symptoms * you have shortness of breath * any other concerns I enjoyed caring for you! Feel better, -Dr Gracia Pending Studies at Discharge: No Stand-Alone Forms: [facility], Smoking Cessation Medications and DC Order Prescriptions: New ertapenem 1 gram recon soln 1 g IV DAILY 6 Days Qty: 6 RF: 0 Continued cholecalciferol (vitamin D3) [Vitamin D3] 50 mcg (2,000 unit) tablet 25 mcg PO 3XWK RF: 0 vitamin B complex Tablet 1 tab PO 3XWK RF: 0 psyllium husk 3.4 gram/5.4 gram powder 0.5 tbsp PO QAM RF: 0 fenofibrate nanocrystallized 145 mg tablet 145 mg PO QAM RF: 0 pravastatin 20 mg tablet 20 mg PO PM RF: 0 allopurinol 300 mg tablet 300 mg PO QAM RF: 0 ascorbic acid (vitamin C) 500 mg tablet 500 mg PO 3XWK RF: 0 metformin 850 mg Tablet 850 mg PO QAM RF: 0 coenzyme Q10 [Co Q-10] 200 mg Capsule 200 mg PO QAM RF: 0 Centrum Silver Men 300-600-300 mcg Tablet 1 tab PO 4XWK RF: 0 metoprolol succinate 50 mg Tablet Extended Release 24 Hr 75 mg PO QPM RF: 0 cyanocobalamin (vitamin B-12) 1,000 mcg Tablet, Sublingual 1,000 mcg SUBLINGUAL 4XWK RF: 0 thiamine HCl (vitamin B1) 100 mg tablet 100 mg PO 4XWK RF: 0 clopidogrel [Plavix] 75 mg tablet 75 mg PO QAM RF: 0 aspirin 81 mg tablet,delayed release (DR/EC) 81 mg PO QPM RF: 0 finasteride 5 mg tablet 5 mg PO QPM RF: 0 Changed tamsulosin 0.4 mg capsule 0.4 mg PO HS Qty: 0 RF: 0 Discontinued ramipril 10 mg capsule 10 mg PO QAM RF: 0 No Action levetiracetam 500 mg tablet 500 mg PO BID 30 Days Qty: 60 RF: 2 Discharge Orders: Discharge Order (Routine); Ordered 12/09/20 Ordered By: Arnol Cheung/Other Patient Handouts: High Blood Sugar (Hyperglycemia), Hypoglycemia (Low Blood Sugar), Managing Type 2 Diabetes, A1C Admission Data Admit Date/Time: 12/08/20 13:04 Attending Provider: Arnol Gracia Admit Provider: Paddy Dickson Primary Care Provider: Jace Garcia Other Providers: Paddy Dickson ; Eusebio Lovelace ; [facility],Home [facility] Other Interventions: Discharge Summary Assessment (RN) Last Done: 12/09/20 13:46 Coding Level of Care Code D/C Day Management >30 mins Diagnoses UTI (urinary tract infection) N39.0 Frequent falls R29.6 Ataxia R27.0 Cerebellar stroke I63.9 Hypoxic brain injury G93.1 Diabetes mellitus E11.9 Hypercholesterolemia E78.00 Essential hypertension I10 Enlarged prostate with lower urinary tract symptoms (LUTS) N40.1 History of cardiac arrest Z86.74 S/P TAVR (transcatheter aortic valve replacement) Z95.2 Seizure R56.9
--- NOTE | 2020-12-18 12:04 | Coding Query ---
CODING QUERY To promote full compliance with coding requirements relating to patient care, provider participation is requested in all cases of hcc coders uncertainty. Please assist us with the question(s) below: Coding Question(s): Acute Exacerbation of COPD is documented throughout chart. Pulmonary is stating patient "not in acute COPD exacerbation." Please clarify below: ( ) Patient with Acute Exacerbation of COPD ( ) Acute Exacerbation of COPD Ruled Out ( ) Other Please Explain: not my group Thank you Schuyler Hassan Principal Diagnosis: "that condition established after study, to be chiefly responsible for occasioning the admission of the patient to the hospital for care." Co-Existing Principal Diagnosis: "when two or more diagnoses equally meet the criteria for principal diagnosis as determined by the circumstances of admission, diagnostic work up, and/or therapy provided, and the Alphabetic Index, Tabular List, or another coding guideline does not provide sequencing direction, any one of the diagnoses may be sequenced first." "When the physician has documented what appears to be a current diagnosis in the body of the record, but has not included the diagnosis in the final diagnostic statement, the physician should be asked whether the diagnosis should be added." (Source [facility]oding [facility] 2 QTR90. p3-4) [place]
--- NOTE | 2020-12-23 07:36 | Coding Query ---
CODING QUERY To promote full compliance with coding requirements relating to patient care, provider participation is requested in all cases of jail officer uncertainty. Please assist us with the question(s) below: Coding Question(s): "Catheter-associated UTI" is documented on discharge but nowhere else in the account. Please clarify below: (x ) Catheter-associated UTI ( ) UTI, NOS ( ) Other Please Explain: Thank you Schuyler Hassan Principal Diagnosis: "that condition established after study, to be chiefly responsible for occasioning the admission of the patient to the hospital for care." Co-Existing Principal Diagnosis: "when two or more diagnoses equally meet the criteria for principal diagnosis as determined by the circumstances of admission, diagnostic work up, and/or therapy provided, and the Alphabetic Index, Tabular List, or another coding guideline does not provide sequencing direction, any one of the diagnoses may be sequenced first." "When the physician has documented what appears to be a current diagnosis in the body of the record, but has not included the diagnosis in the final diagnostic statement, the physician should be asked whether the diagnosis should be added." (Source [facility]oding [facility] 2 QTR90. p3-4) [place]
== END 2020-12-09 15:41 | disposition home health service (06) | DRG 699 ==
LOC: 2N 22:38 → ED 22:38 → SUATTDRO 12-07 03:04 → 2N 12-07 03:55